=== PATIENT | female | born 1935 | race Caucasian/White ===

== ENCOUNTER 2018-03-09 12:42 | Emergency (ER) | payer MEDICARE ==
[2018-03-09] MEDS ORDERED: NS 0.9% 1000 ML* 1,000 ML IV ONE (12:43)
[2018-03-09] MEDS ORDERED: Iodixanol* (CONTRAST) 320 MG/ML 100 ML SDV IV ONE (13:32)
--- NOTE | 2018-03-09 13:47 | ED ---
Shortness of Breath - HPI Summary HPI Summary: This is scribe Steven Davidson documenting for attending Sarah Fontenot MD. A 82 y/o female MARISA presents to ED with chief complaint of CP,SOB worsening in the last few weeks referred by Dr. Tamayo who had drawn outpatient labs and noted elevated d dimer of 1500, troponin, normal at less than 0.06. In the ED room, the patient has a pulse of 95 BPM, O2 saturation of 94% and blood pressure of 193/78. As per triage, "SOB and per pt PCP Dr. Tamayo, elevated DDimer of 1470". Currently, the patient feels fine and has no CP or SOB at rest , however, has neck pain. Also, she has chest "pain" ("heaviness") on exertion but it has "been like that for years". In the ED pt states it has not become worse within the last [address] Tamayo who phoned ahead to advise of pt' s arrival by EMS, pt had an outpatient D-Dimer of approximately 1500 from labs drawn in the AM and a normal troponin. Pt has chronic reactive airway disease due to allergic rhinitis and takes singulair and a Q yariel inhaler, but has stopped the fluticasone nasal spray on her own. Pt also has hx HTN, on amlodipine and spironolactone. The patient stated that she suffers from chronic pain brought on by arthritis all over. Additionally she has chronic neck pain. She notes that she does not have SOB at rest, but if she walks around she does. She also has trouble with urinary incontinence. Pt denies any pain or swelling in legs, nausea, vomiting, wheezing, abdominal pain, worsening incontinence. Additionally denies any use of oxygen at home. She noted that previously when her MD called ED she did not have chest "pain", but rather chest "heaviness". Hot weather makes it hard for her to breathe. Pt wears support stockings. PMHx of left mastectomy for breast cancer. FHx of thrombosis/PE (her children) who have PCKD inherited from their father, not pt, heart disease (sister), and pancreatic cancer (mother). I, Dr. Sarah Fontenot, personally performed the services described in this documentation as scribed in my presence and it is both accurate and complete. - History of Current Complaint Chief Complaint: EDShortnessOfBreath Time Seen by Provider: 03/09/18 12:43 Hx Obtained From: Patient, Other: - Dr. Tamayo and records from his office Onset/Duration: Gradual Onset, Lasting Weeks Timing: Constant Current Severity: None Dyspnea At: Exertion Aggrevating Factors: Movement Alleviating Factors: Other - REST Associated Signs & Symptoms: Negative - Risk Factors Pulmonary Embolism: Malignancy - Allergy/Home Medications Allergies/Adverse Reactions: Allergies Allergy/AdvReac Type Severity Reaction Status Date / Time clindamycin Allergy GI Upset Verified 03/09/18 12:51 codeine Allergy Dizziness Verified 03/09/18 12:51 lisinopril Allergy Coughing Verified 03/09/18 12:51 meperidine [From Demerol] Allergy Altered Verified 03/09/18 12:51 Mental Status Penicillins Allergy Rash Verified 03/09/18 12:51 TETANUS Allergy REDDNESS Uncoded 03/09/18 12:51 FROM SHOULDER TO ELBOW Home Medications: Home Medications Beclomethasone 40 MCG MDI(NF) [Qvar 40 MCG MDI(NF)] 2 puff INH QAM 03/09/18 [ History Confirmed 03/09/18] Cholecalciferol CAP/TAB(NF) [Vitamin D3 CAP/TAB (NF)] 1,000 unit PO DAILY [History Confirmed 03/09/18] Clobetasol Propionate [Clobex] 0.05 % TOPICAL BID 03/09/18 [History Confirmed ] Levalbuterol HFA INHALER* [Xopenex Hfa Inhaler*] 2 puff INH QID PRN 03/09/18 [ History Confirmed 03/09/18] Montelukast Sodium TAB* [Singulair 10 MG TAB*] 10 mg PO BEDTIME 03/09/18 [ History Confirmed 03/09/18] Naproxen Sodium [Aleve] 220 mg PO BID PRN 03/09/18 [History Confirmed 03/09/18] Omeprazole Magnesium [Acid Clay Stain Mixer] 20 mg PO DAILY 03/09/18 [History Confirmed 03/09/18] Sodium Chloride 5% OPTH.TROY* [Chalo 128 Opth 5% OPTH.SOLl*] 1 drop BOTH EYES QID 03/09/18 [History Confirmed 03/09/18] Spironolactone TAB* [Aldactone TAB 25 MG*] 12.5 mg PO DAILY 03/09/18 [History Confirmed 03/09/18] Vit A/Vit C/Vit E/Zinc/Copper [Preservision Areds Softgel] 1 cap PO BID [History Confirmed 03/09/18] amLODIPine TAB* [Norvasc 5 mg TAB*] 10 mg PO DAILY 03/09/18 [History Confirmed 03/09/18] PMH/Surg Hx/FS Hx/Imm Hx Previously Healthy: No Endocrine/Hematology History: Denies: Hx Diabetes Cardiovascular History: Reports: Hx Hypertension - ON MEDICATION Denies: Hx Pacemaker/ICD Respiratory History: Reports: Hx Asthma - ALLERGIES, Hx Chronic Obstructive Pulmonary Disease (COPD), Hx Seasonal Allergies GI History: Reports: Hx Gastroesophageal Reflux Disease - ON MEDICATION FOR/ SLEEPS WITH HEAD OF BED ELEVATED, Hx Hiatal Hernia - ON MEDICATION History: Reports: Other Problems/Disorders - INCONTINENCE Denies: Hx Renal Disease Musculoskeletal History: Reports: Hx Arthritis - OSTEOARTHRITIS Sensory History: Reports: Hx Cataracts, Hx Contacts or Glasses Denies: Hx Hearing Aid Opthamlomology History: Reports: Hx Cataracts, Hx Contacts or Glasses Neurological History: Reports: Hx Headaches Psychiatric History: Denies: Hx Panic Disorder - Cancer History Cancer Type, Location and Year: breast x2; skin Hx Chemotherapy: Yes - Surgical History Surgery Procedure, Year, and Place: 2001 BILATERAL CATARACT SURGERY WITH IOL IMPLANT, [facility] [place];1992 LEFT BREAST LUMPECTOMY, [facility];2007 LEFT BREAST MASTECTOMY, [facility];2007 LOWER FRONT AND RIGHT JAW SURGERY, [facility] [place];1991 ORAL SURGERY, [facility];2012 (August) right total shoulder replacement 2012 (April) revision right shoulder; COLONOSCOPY;2008 LOWER RIGHT JAW SURGERY WITH IMPLANT, [facility] [place];2008 EXPLORATION LOWER RIGHT JAW, [place];2002 LEFT WRIST SURGERY, [facility] [place];RIGHT WRIST SURGERY;2010 ; MOHS SURGERY WITH SKIN GRAFT ON FACE, [place] (x8 SKIN CANCER SURGERYS); Hx Anesthesia Reactions: Yes - HARD TIME WAKING UP Infectious Disease History: No Infectious Disease History: Denies: Traveled Outside the [place] in Last 30 Days - Family History Known Family History: Positive: Cardiac Disease - sister, Other - pancreatic cancer, mother Negative: Respiratory Disease - Social History Alcohol Use: None Substance Use Type: Reports: None Smoking Status (MU): Never Smoked Tobacco Review of Systems Negative: Fever Positive: Other - hoarse voice Positive: Chest Pain - With Exertion. Positive: Shortness Of Breath - With Movement., Other - NEGATIVE: Wheezing. Negative: Abdominal Pain, Vomiting, Nausea, Other - NEGATIVE: incontinence Positive: incontinence Positive: Other - NEGATIVE: Pain in legs, calves; neck pain Skin: Negative Neurological: Negative Psychological: Normal All Other Systems Reviewed And Are Negative: Yes Physical Exam - Summary Physical Exam Summary: Appearance: Well-appearing, moderate pain distress, well-nourished Skin:Warm, color reflects adequate perfusion, dry, facial scars Head:Normal Head/Face inspection, atraumatic Eyes: Conjunctiva clear ENT:Normal inspection Neck:Supple, no nodes, no JVD, trachea midline, thyroid non palpable, no masses Respiratory: Lungs clear, normal breath sounds, no respiratory distress Cardio: RRR, No murmur, pulses normal, brisk capillary refill, left mastectomy. Abdomen: Soft, nontender Bowel sounds: Present Musculoskeletal: Strength Intact/ROM intact, no calf tenderness, no edema. Psychological: Normal Neuro: Alert, muscle tone normal, no focal deficit Triage Information Reviewed: Yes Vital Signs On Initial Exam: Initial Vitals Temp Pulse Resp BP Pulse Ox 98.8 F 88 24 174/96 95 03/09/18 12:46 03/09/18 12:46 03/09/18 12:46 03/09/18 12:46 03/09/18 12:46 Vital Signs Reviewed: Yes Diagnostics - Vital Signs Vital Signs Temp Pulse Resp BP Pulse Ox 03/09/18 13:00 101 19 193/78 97 03/09/18 12:50 95 20 94 03/09/18 12:49 95 03/09/18 12:46 98.8 F 88 24 174/96 95 - Laboratory Result Diagrams: 03/09/18 13:51 03/09/18 13:51 Lab Statement: Any lab studies that have been ordered have been reviewed, and results considered in the medical decision making process. - Radiology CXR Radiology Interpretation Completed By: Radiologist - NO ACTIVE CARDIOPULMONARY DISEASE IS NOTED. ED physician reviewed this radiology report. - CT CTA CHEST/THORAX CT Interpretation Completed By: Radiologist - 1. No CT evidence of acute pulmonary embolic disease. 2. Mild emphysematous change. 3. Large left thyroid mass likely related to a goiter. Suggest nonemergent follow-up thyroid sonography. 4. Large hiatal hernia. 5. Probable scant gallbladder gravel. 6. Left mastectomy with axillary dissection. ED physician reviewed this radiology report. - EKG 1303 Cardiac Rate: NL - 94 BPM EKG Rhythm: Sinus Rhythm ST Segment: Non-Specific Ectopy: None EKG Interpretation: nl SHARRON CT, nl QTc, left axis -4, no ectopy EKG Comparison: No Significant Change - Compared with 04/15/2013. Re-Evaluation - Re-Evaluation First Eval Re-Evaluation Time: 14:10 Change: Unchanged Comment: pt advised of CTA result. Denies CP, SOB. Will discuss with Dr. Tamayo. Course/Dx - Course Course Of Treatment: A 82 y/o female BIBA at direction of Dr. Tamayo, presents to ED with c/o CP and SOB and D-Dimer of 1500. A CTA Chest revealed 1. No CT evidence of acute pulmonary embolic disease. 2. Mild emphysematous change. 3. Large left thyroid mass likely related to a goiter. Suggest nonemergent follow- up thyroid sonography. 4. Large hiatal hernia. 5. Probable scant gallbladder gravel. 6. Left mastectomy with axillary dissection. A CXR revealed no active cardiopulmonary disease. An EKG revealed NSR of 94 BPM, nl SHARRON CT, nl QTc, left axis -4, no ectopy, no change from prior. In the ED course, the patient received IV fluids for hydration after receiving IV contrast for CTA. Pt denied CP/SOB in the ED. Troponin drawn in ED neg, d dimer in ED elevated at 327, but not as high as outpatient d dimer of 1500. Pt's medications were reviewed this visit. Patient care was discussed with PCP, Dr. Tamayo, who recommends patient to restart fluticasone nasal spray. Increase Gabapentin to 600 mg tid. He will follow up with left thyroid mass. Patient will be discharged with a diagnosis of allergic rhinitis with acute exacerbation of asthma without status asthmaticus, chronic pain, chest pain, elevated D-Dimer, thyroid mass of unclear etiology and osteoarthritis. Patient is to follow up with Dr. Tamayo in 2 days. Patient is agreeable with this plan. - Diagnoses Differential Diagnosis/HQI/PQRI: Positive: Asthma, COPD Exacerbation, PR, Pneumonia, Pulmonary Embolism Provider Diagnoses: Allergic rhinitis with acute exacerbation of asthma without status asthmaticus , Osteoarthritis, Chronic pain, Chest pain, Elevated d-dimer, Thyroid mass of unclear etiology - Physician Notifications Discussed Care of Patient With: Andi Tamayo Time Discussed With Above Provider: 14:16 Instructed by Provider To: Have Pt Call For Appt. - Patient will start on a fluticasone nasal spray. Increase Gabapentin to 600 mg tid. He will follow up with left thyroid mass. Discharge - Sign-Out/Discharge Documenting (check all that apply): Patient Departure - DISCHARGE - Discharge Plan Condition: Stable Disposition: HOME Prescriptions: Fluticasone NASAL SPRAY 50MCG* [Flonase NASAL SPRAY 50MCG*] 2 spray BOTH NARES DAILY #1 btl Gabapentin CAP(*) [Neurontin 300 CAP(*)] 600 mg PO TID #180 cap Patient Education Materials: Gabapentin (By mouth), Chest Pain (ED), Osteoarthritis (ED), Chronic Pain (ED), Allergic Rhinitis (ED) Referrals: Andi Tamayo MD [Primary Care Provider] - 2 Days Additional Instructions: We have talked to Dr. Tamayo, and we have given you a copy of your labs and CT report done in the ER. You have a thyroid mass, that Dr. Tamayo knows about and he will follow up on this as an outpatient. It may be a goiter. It may explain your hoarseness. Dr. Tamayo and Dr. Fontenot think that your chest discomfort and shortness of breath are related to your allergic rhinitis and your chronic severe arthritis pain. The labs testing for a heart attack and your EKG did not indicate an acute heart attack. The elevated d dimer was not a blood clot or pulmonary embolus. The d dimer is also a marker of inflammation, so it may be elevated because of your pain and reactive airway disease due to your allergic rhinitis. Dr. Tamayo wants to increase your gabapentin to 600mg three times a day for your severe arthritis pain. Dr. Fontenot has sent a prescription to [facility] in [place] for you for this. Dr. Tamayo also wants you to resume fluticasone nasal spray and she has sent a prescription for that to [facility] also. Return to ER if you have new or worsening symptoms. Have definite follow up with Dr. Darlow. Call his office to schedule this in the next 2-3 days. - Billing Disposition and Condition Condition: STABLE Disposition: Home
--- NOTE | 2018-03-09 13:54 | RAD ---
INDICATION: Chest pain. Short of breath. Evaluate for pulmonary embolus. COMPARISON: CT lumbar spine February 06, 2017 TECHNIQUE: Axial source images were obtained from the thoracic inlet to the hemidiaphragms following administration of 67 mL Vis[address] angiographic technique was utilized. Coronal and sagittal reconstructed images were acquired. CHEST FINDINGS: Neck/thyroid: There is a large left thyroid mass likely related to a goiter. Suggest nonemergent thyroid sonography. Chest wall: There are no acute abnormalities of the bony thorax or chest wall. There is left mastectomy with axillary dissection There is no supraclavicular, infraclavicular, or axillary lymphadenopathy. Lungs : There is mild coarsening the pulmonary interstitium. There are no focal consolidative changes. Cardiomediastinal structures: There is no CT evidence of acute pulmonary embolic disease. The heart is normal enlarged. There is no pericardial effusion. There is no evidence of aortic aneurysm or dissection. There is uncoiling of the thoracic aorta. There are aortic intimal calcifications. There is no mediastinal or hilar adenopathy. The esophagus appears normal. Pleura : There are no pleural-based masses or effusions. Other: There may be scant gallbladder gravel. There is mild fullness left renal collecting system. There is a large hiatal hernia. IMPRESSION: 1. No CT evidence of acute pulmonary embolic disease. 2. Mild emphysematous change. 3. Large left thyroid mass likely related to a goiter. Suggest nonemergent follow-up thyroid sonography. 4. Large hiatal hernia. 5. Probable scant gallbladder gravel. 6. Left mastectomy with axillary dissection
[2018-03-09 14:04] LABS: ABS Basophils 0.1 10^3/ul (0-0.2); ABS Eosinophils 0.1 10^3/ul (0-0.6); ABS Lymphocytes 1.1 10^3/ul (1.0-4.8); ABS Monocytes 0.6 10^3/ul (0-0.8); ABS Neutrophils 6.4 10^3/ul (1.5-7.7); ABS Nucleated RBC 0 10^3/ul; Eosinophil % 0.7 % (0-6); Hematocrit 48 % (35-47); Hemoglobin 16.5 g/dl (12.0-16.0); Mean Corpuscular HGB Conc 35 g/dl (31-36); Mean Corpuscular Hemoglobin 31 pg (27-31); Mean Corpuscular Volume 90 fL (80-97); Mean Platelet Volume 7.7 um3 (7.4-10.4); Nucleated Red Blood Cells % 0.1; Platelet Count 291 10^3/ul (150-450); Red Blood Count 5.28 10^6/ul (4.00-5.40); Red Cell Distribution Width 13 % (10.5-15); White Blood Count 8.2 10^3/ul (3.5-10.8)
[2018-03-09 14:09] LABS: Urine Appearance Clear; Urine Blood 1+ (Negative); Urine Color Yellow; Urine Ketones Negative (Negative); Urine Protein 1+(30 mg/dL) (Negative); Urine Red Blood Cell 2+(6-10/hpf) (Absent); Urine Specific Gravity 1.014 (1.010-1.030); Urine Urobilinogen Negative (Negative); Urine White Blood Cell 3+(>20/hpf) (Absent)
[2018-03-09 14:12] LABS: INR 0.88 (0.77-1.02)
[2018-03-09 14:27] LABS: EGFR Non-African American 74.8 (>60)
[2018-03-09 14:39] VITALS: BP 154/85
--- NOTE | 2018-03-09 15:02 | RAD ---
Indication: Chest pain. Single frontal view of the chest performed at 1435 hours was reviewed. Comparison is made with previous exam dated August 05, 2012. No mediastinal shift is noted. Heart is of normal size and configuration. Lung villalba appear clear. IMPRESSION: NO ACTIVE CARDIOPULMONARY DISEASE IS NOTED.
== END 2018-03-09 15:03 | disposition home or self-care (01) ==
LOC: ED 12:42
DX: J45.901 Unspecified asthma with (acute) exacerbation (principal); J30.9 Allergic rhinitis, unspecified; R07.9 Chest pain, unspecified; R79.1 Abnormal coagulation profile; E07.9 Disorder of thyroid, unspecified; K44.9 Diaphragmatic hernia without obstruction or gangrene; M19.90 Unspecified osteoarthritis, unspecified site; I10 Essential (primary) hypertension; G89.29 Other chronic pain; M54.2 Cervicalgia; K21.9 Gastro-esophageal reflux disease without esophagitis; R32 Unspecified urinary incontinence; Z79.899 Other long term (current) drug therapy; Z83.2 Family history of diseases of the blood and blood-forming organs and certain disorders involving the immune mechanism; Z88.3 Allergy status to other anti-infective agents; Z88.5 Allergy status to narcotic agent; Z88.7 Allergy status to serum and vaccine; Z88.8 Allergy status to other drugs, medicaments and biological substances; Z90.12 Acquired absence of left breast and nipple
CPT/HCPCS: 36415; 71045; 71275; 80053; 81003; 81015; 82550; 82553; 83605; 83735; 83880; 84484; 85025; 85379; 85610; 85730; 87086; 93005; 96360; 99283; Q9967

== ENCOUNTER 2018-06-18 06:06 | Inpatient (IN) | payer MEDICARE ==
--- OUTSIDE RECORDS SUMMARY | 2018-06-18 06:10 | XMS REPORT ---
:1935 External Reference #:[id number] Author Organization [employer] Address [address] [facility] [address] [place] [address] [place] [address] Phone [phone] Care Team Providers Name Role Phone Andi Tamayo MD Primary Care Physician Unavailable Payers Type Date Identification Numbers Payment Provider Subscriber Medicare Primary Effective: Policy Number: [id number] Medicare Graciela Styles 2000 [id number] PayID: [id number] [address] [place] [address] [facility] Part B Effective: Policy Number: BS Facets Graciela Styles 2011 [id number] Expires: 2017 PayID: [id number] [address] [address] [place] [address] Medigap Part B Policy Number: [id number] [facility] Graciela Styles PayID: [id number] [address] [place] [address] Problems Description No Information Family History Date Family Member(s) Problem(s) Comments General Heart Disease General Diabetes General Cancer Father Heart Disease Father Stroke Mother Pancreatic Cancer Social History Type Date Description Comments Marital Status Occupation Retired ETOH Use Denies alcohol use Smoking Patient has never smoked Daily Caffeine Consumes on average 2 cups of regular coffee per day Exercise Type/Frequency Does not exercise Allergies, Adverse Reactions, Alerts Date Description Reaction Status Severity Comments 09/14/2013 Penicillins active rash 09/14/2013 Codeine active nausea 09/14/2013 Clindamycin active gi distress 09/14/2013 Lisinopril active cough 09/14/2013 Demerol active nausea 09/14/2013 Tetanus Toxoids active Medications Medication Date Status Form Strength Qnty SIG Indications Ordering Provider Amlodipine Besylate Active 10 mg Unknown / daily Singulair Active 10mg qd Unknown Flovent HFA Active 110mg 2 puff bid Unknown prn Vitamin D Active Capsules 1000Unit po qd Unknown / Fluticasone Active 2 sprays Unknown Propionate each nostril daily as needed Qvar Redihaler Active Aerosol 40mcg/Act 2 puff Unknown twice a day Clobetasol Active Cream 0.05% apply a Unknown Propionate thin layer to affected areas twice daily. Preservision Areds Active Capsules 1 tab by Unknown /0000 mouth twice a day Chalo 128 Active Solution 2% four times Unknown / a day as directed Aleve Active Tablets 220mg 1-2 Unknown / tablets every 12 hours as needed pain Gabapentin Active Capsules 100mg 1-2 tabs Unknown / three times a day Spironolactone Active Tablets 25mg 1/2 by Unknown /0000 mouth every day Esomeprazole Active Capsules 20mg [address] every day Oxycodone HCL 12/21 Hx Tablets 5mg 60tab 1-2 po tid s prn michael Velasquez M.D. [place] 05/18 Hx Tablets 5-325mg 40tab 1-2 po q4h Soraya s prn Katerin lucero M.D. 12/21 Hydrochlorothiazide Hx Unknown / Arthrotec Hx 50mg bid Prevacid Hx 30mg qd Unknown Tamoxifen Citrate Hx 20mg qd Centrum Silver Hx Unknown / Calcium Citrate Hx Unknown / Tylenol Hx prn Xopenex HFA Hx Aerosol 45mcg/Act 2 puffs Unknown /0000 inhaled every 4-6h as needed for shortness of breath. Medications Administered in Office Medication Date Status Form Strength Qnty SIG Indications Ordering Provider Depomedrol Administered Injection Anatoly 80MG 012 George Velasquez Depomedrol Administered Injection k Roby, 40MG 012 George Vital Signs Date Vital Result Comment 06/02/2018 Height 57.5 inches 4'9.50" Weight 136.00 lb Heart Rate 72 /min BP Systolic Sitting 138 mmHg BP Diastolic Sitting 78 mmHg Respiratory Rate 18 /min Body Temperature 98.1 F BMI (Body Mass Index) 28.9 kg/m2 09/14/2013 Height 58 inches 4'10" Weight 140.00 lb Heart Rate 92 /min BMI (Body Mass Index) 29.3 kg/m2 Results Test Date Test Result H/L Range Note Laboratory test 05/10/2018 Cytology Non-Director Of Acquisitions SEE RESULT BELOW 1 finding CBC Auto Diff 12/18/2017 White Blood Count 8.5 10^3/uL 3.5-10.8 Red Blood Count 5.19 10^6/uL 4.0-5.4 Hemoglobin 16.3 g/dL High 12.0-16.0 Hematocrit 48 % High 35-47 Mean Corpuscular Volume 92 fL 80-97 Mean Corpuscular Hemoglobin 31 pg 27-31 Mean Corpuscular HGB Conc 34 g/dL 31-36 Red Cell Distribution Width 13 % 10.5-15 Platelet Count 284 10^3/uL 150-450 Mean Platelet Volume 7.4 um3 7.4-10.4 Abs Neutrophils 6.4 10^3/uL 1.5-7.7 Abs Lymphocytes 1.3 10^3/uL 1.0-4.8 Abs Monocytes 0.6 10^3/uL 0-0.8 Abs Eosinophils 0.1 10^3/uL 0-0.6 Abs Basophils 0.1 10^3/uL 0-0.2 Abs Nucleated RBC 0 10^3/uL Granulocyte % 74.8 % 38-83 Lymphocyte % 15.7 % Low 25-47 Monocyte % 7.2 % High 0-7 Eosinophil % 1.3 % 0-6 Basophil % 1.0 % 0-2 Nucleated Red Blood Cells % 0 Basic Metabolic Panel 12/18/2017 Sodium 137 mmol/L Low 139-145 Potassium 4.4 mmol/L 3.5-5.0 Chloride 102 mmol/L 101-111 Co2 Carbon Dioxide 26 mmol/L 22-32 Anion Gap 9 mmol/L 2-11 Glucose 101 mg/dL High 70-100 Blood Urea Nitrogen 19 mg/dL 6-24 Creatinine 0.70 mg/dL 0.51-0.95 BUN/Creatinine Ratio 27.1 High 8-20 Calcium 10.5 mg/dL High 8.6-10.3 Egfr Non- 79.7 >60 Egfr 102.5 >60 2 Basic Metabolic Panel 06/24/2017 Sodium 134 mmol/L 133-145 Potassium 4.4 mmol/L 3.5-5.0 Chloride 102 mmol/L 101-111 Co2 Carbon Dioxide 26 mmol/L 22-32 Anion Gap 6 mmol/L 2-11 Glucose 125 mg/dL High 70-100 Blood Urea Nitrogen 20 mg/dL 6-24 Creatinine 0.69 mg/dL 0.51-0.95 BUN/Creatinine Ratio 29.0 High 8-20 Calcium 10.8 mg/dL High 8.6-10.3 Egfr Non- 81.1 >60 Egfr 104.2 >60 3 CBC Auto Diff 06/24/2017 White Blood Count 6.8 10^3/uL 3.5-10.8 Red Blood Count 5.20 10^6/uL 4.0-5.4 Hemoglobin 15.9 g/dL 12.0-16.0 Hematocrit 48 % High 35-47 Mean Corpuscular Volume 92 fL 80-97 Mean Corpuscular Hemoglobin 31 pg 27-31 Mean Corpuscular HGB Conc 34 g/dL 31-36 Red Cell Distribution Width 13 % 10.5-15 Platelet Count 298 10^3/uL 150-450 Mean Platelet Volume 8 um3 7.4-10.4 Abs Neutrophils 5.4 10^3/uL 1.5-7.7 Abs Lymphocytes 0.8 10^3/uL Low 1.0-4.8 Abs Monocytes 0.5 10^3/uL 0-0.8 Abs Eosinophils 0.1 10^3/uL 0-0.6 Abs Basophils 0.1 10^3/uL 0-0.2 Abs Nucleated RBC 0 10^3/uL Granulocyte % 79.0 % 38-83 Lymphocyte % 12.4 % Low 25-47 Monocyte % 6.8 % 1-9 Eosinophil % 0.8 % 0-6 Basophil % 1.0 % 0-2 Nucleated Red Blood Cells % 0 Type & Screen 04/14/2013 Patient Blood Type O Positive Antibody Screen NEGATIVE Laboratory test finding 04/14/2013 Vitamin D 1,25-Dihydroxy 59 pg/mL 18- 78 4 Vitamin D, 25 Hydroxy 04/14/2013 25-Hydroxy Vitamin D2 <4.0 ng/mL 25-Hydroxy Vitamin D3 72 ng/mL 25-Hydroxy Vitamin D Total 72 ng/mL 5 Laboratory test finding 04/14/2013 CA 27-29 9.35 U/mL 3.5-38.6 6 Comp Metabolic Panel 04/14/2013 Sodium 137 mmol/L 133-145 Potassium 3.5 mmol/L 3.5-5.0 Chloride 100 mmol/L Low 101-111 Co2 Carbon Dioxide 26.0 mmol/L 22-32 Anion Gap 11.0 mmol/L 2-11 Glucose 105 mg/dL High 70-100 Blood Urea Nitrogen 23 mg/dL 6-24 Creatinine 0.70 mg/dL 0.50-1.40 BUN/Creatinine Ratio 32.9 High 8-20 Calcium 10.3 mg/dL High 8.1-9.9 Total Protein 6.3 g/dL 6.2-8.1 Albumin 3.8 g/dL 3.2-5.2 Globulin 2.5 g/dL 2-4 Albumin/Globulin Ratio 1.5 1-3 Total Bilirubin 0.5 mg/dL 0.4-1.5 Alkaline Phosphatase 93 U/L 30-110 Alt 29 U/L 14-54 Ast 35 U/L 12-42 Egfr Non- 80.7 >60 Egfr 103.8 >60 7 CBC Auto Diff 04/14/2013 White Blood Count 8.4 10^3/uL 4.8-10.8 Red Blood Count 4.79 10^6/uL 4.0-5.4 Hemoglobin 14.3 g/dL 12.0-16.0 Hematocrit 44 % 35-47 Mean Corpuscular Volume 92 fL 80-97 Mean Corpuscular Hemoglobin 30 pg 27-31 Mean Corpuscular HGB Conc 32 g/dL 31-36 Red Cell Distribution Width 14 % 10.5-15 Platelet Count 320 10^3/uL 150-450 Mean Platelet Volume 8 um3 7.4-10.4 Abs Neutrophils 5.9 10^3/uL 1.5-7.7 Abs Lymphocytes 1.6 10^3/uL 1.0-4.8 Abs Monocytes 0.7 10^3/uL 0-0.8 Abs Eosinophils 0.1 10^3/uL 0-0.6 Abs Basophils 0.1 10^3/uL 0-0.2 Abs Nucleated RBC 0.01 10^3/uL Granulocyte % 70.1 % 38-83 Lymphocyte % 19.5 % Low 25-47 Monocyte % 8.2 % 1-9 Eosinophil % 1.3 % 0-6 Basophil % 0.9 % 0-2 Nucleated Red Blood Cells % 0.1 Urine Culture And Sensitivities 04/14/2013 Urine Culture (SEE NOTE) 8 Urine Microscopic 04/14/2013 Urine WBC 1+ (<10 /hpf) None Seen Urine RBC 1+ (<3 /hpf) None Seen Urine Epithelial Cells 1+ Squamous /hpf None Seen Bacteria Urine None Seen None Seen Urinalysis 04/14/2013 Urine Color Yellow Urine Appearance Clear Urine Specific Sula 1.027 1.010-1.030 Urine Esterase 1+ Negative Urine Nitrate Negative Negative Urine Urobilinogen Negative E.U./dL Negative Urine Protein Negative mg/dL Negative Urine pH 5.5 5-9 Urine Blood Negative Negative Urine Ketones Negative mg/dL Negative Urine Bilirubin 1+ Negative Urine Glucose Negative mg/dL Negative Laboratory test finding 03/24/2013 C Reactive Protein 0.5 mg/dL Less than 0.5 CBC Auto Diff 03/24/2013 White Blood Count 10.3 10^3/uL 4.8-10.8 Red Blood Count 4.82 10^6/uL 4.0-5.4 Hemoglobin 14.4 g/dL 12.0-16.0 Hematocrit 44 % 35-47 Mean Corpuscular Volume 91 fL 80-97 Mean Corpuscular Hemoglobin 30 pg 27-31 Mean Corpuscular HGB Conc 33 g/dL 31-36 Red Cell Distribution Width 14 % 10.5-15 Platelet Count 347 10^3/uL 150-450 Mean Platelet Volume 8 um3 7.4-10.4 Abs Neutrophils 7.8 10^3/uL High 1.5-7.7 Abs Lymphocytes 1.5 10^3/uL 1.0-4.8 Abs Monocytes 0.8 10^3/uL 0-0.8 Abs Eosinophils 0.1 10^3/uL 0-0.6 Abs Basophils 0.1 10^3/uL 0-0.2 Abs Nucleated RBC 0 10^3/uL Granulocyte % 75.5 % 38-83 Lymphocyte % 15.0 % Low 25-47 Monocyte % 8.0 % 1-9 Eosinophil % 0.6 % 0-6 Basophil % 0.9 % 0-2 Nucleated Red Blood Cells % 0 Laboratory test finding 03/24/2013 Erythrocyte Sed Rate 34 mm/Hr 0-40 1 SEE RESULT BELOW Name: GRACIELA STYLES : [address]: Andi Tamayo MD Acct: [id number] Unit: [id number] AGE: 82 Location: Re05/10/18 SEX: F Status: REG REF SPEC: [id number] DORIS: 05/10/18-[address] [facility] [address]: Andi Tamayo MD REQ: [id number] RECD: 05/10/18-1399 STATUS: GISELLE CHAND DR: Brandon Almonte MD _ ORDERED: FNA-IMG GUID BX/4, CYTO ADEQ-1ST P/4 FINAL DIAGNOSIS 1) Thyroid, right mid, Ultrasound guided, fine needle aspiration: -- Benign thyroid nodule-involutional type (Stanford class II). 2) Thyroid, right lower, Ultrasound guided, fine needle aspiration: -- Benign thyroid nodule-colloid/hyperplastic (Stanford class II). 3) Thyroid, isthmus, Ultrasound guided, fine needle aspiration: -- Follicular neoplasm (Stanford class IV). 4) Thyroid, left, Ultrasound guided, fine needle aspiration: -- Malignant- papillary thyroid carcinoma (Stanford class ). COMMENT: Dr. Vargas reviewed this case in intradepartmental consultation and agrees with the diagnosis. #1. THYROID RIGHT - US GUIDED RIGHT MID THYROID FINE NEEDLE ASPIRATION, #2. THYROID RIGHT - US GUIDED RIGHT LOWER THYROID FINE NEEDLE ASPIRATION, CONTINUED ON NEXT PAGE DEPARTMENT OF PATHOLOGY, [address] [place] [address] Davis Vargas M.D. Director [facility] # [id number] RUN DATE: 05/11/18 [facility] LAB LIVE PAGE 2 Patient: GRACIELA STYLES Saundra [id number] (Continued) SPECIMEN(S) RECEIVED (Continued) #3. THYROID ISTHMUS - US GUIDED ISTHMUS FINE NEEDLE ASPIRATION, #4. THYROID LEFT - US GUIDED LEFT THYROID FINE NEEDLE ASPIRATION CLINICAL HISTORY #1) 1.6 x 1.3 x 1.3 cm mid thyroid n IMMEDIATE INTERPRETATION 1) Pass 1-adequate 2) Pass 1-adequate 3) Pass 1-adequate 4) Pass 1-adequate GROSS DESCRIPTION 1) 4 - alcohol fixed slide(s) 1- passes 2) 3 - alcohol fixed slide(s) 1 - passes 3) 5 - alcohol fixed slide(s) 1 - passes 4) 3 - alcohol fixed slide(s) 1 - passes Signed by and Reported on: Renata Hernandez MD 05/11/18 1205 END OF REPORT DEPARTMENT OF PATHOLOGY, [address] [place] [address] Davis Vargas M.D. Director [facility] # [id number] 2 Because ethnic data is not always readily available, this report includes an eGFR for both -Americans and non- Americans. The National Kidney Disease Education Program (NKDEP) does not endorse the use of the MDRD equation for patients that are not between the ages of 18 and 70, are , have extremes of body size, muscle mass, or nutritional status, or are non- or non-. According to the National Kidney Foundation, irrespective of diagnosis, the stage of the disease is based on the level of kidney function: Stage Description GFR(mL/min/1.73 m(2)) 1 Kidney damage with normal or decreased GFR 90 2 Kidney damage with mild decrease in GFR 60-89 3 Moderate decrease in GFR 30-59 4 Severe decrease in GFR 15-29 5 Kidney failure <15 (or dialysis) 3 Because ethnic data is not always readily available, this report includes an eGFR for both -Americans and non- Americans. The National Kidney Disease Education Program (NKDEP) does not endorse the use of the MDRD equation for patients that are not between the ages of 18 and 70, are , have extremes of body size, muscle mass, or nutritional status, or are non- or non-. According to the National Kidney Foundation, irrespective of diagnosis, the stage of the disease is based on the level of kidney function: Stage Description GFR(mL/min/1.73 m(2)) 1 Kidney damage with normal or decreased GFR 90 2 Kidney damage with mild decrease in GFR 60-89 3 Moderate decrease in GFR 30-59 4 Severe decrease in GFR 15-29 5 Kidney failure <15 (or dialysis) 4 Test Performed by: [place] [address] Chair Pad Maker: Alonso Shelton III, M.D. 5 Interpretation: 51-80 (increased risk of hypercalciuria) -- REFERENCE VALUE -- 25-HYDROXY D TOTAL (D2+D3) Optimum levels in the healthy population are 20-50, patients with bone disease may benefit from higher levels within this range. Test Performed by: [place] [address] Chair Pad Maker: Alonso Shelton III, M.D. 6 Assay by Chemiluminescence microparticle immunoassay on the [employer]. Values obtained with different methods or kits cannot be used interchangeably for patient monitoring. Results cannot be interpreted as absolute evidence of the presence or absence of malignancy. The test is not interpretable in . 7 Because ethnic data is not always readily available, this report includes an eGFR for both -Americans and non- Americans. The National Kidney Disease Education Program (NKDEP) does not endorse the use of the MDRD equation for patients that are not between the ages of 18 and 70, are , have extremes of body size, muscle mass, or nutritional status, or are non- or non-. According to the National Kidney Foundation, irrespective of diagnosis, the stage of the disease is based on the level of kidney function: Stage Description GFR(mL/min/1.73 m(2)) 1 Kidney damage with normal or decreased GFR 90 2 Kidney damage with mild decrease in GFR 60-89 3 Moderate decrease in GFR 30-59 4 Severe decrease in GFR 15-29 5 Kidney failure <15 (or dialysis) 8 RUN DATE: 04/16/13 [facility] LAB LIVE PAGE 1 RUN TIME: [address] [place] [address] Specimen Inquiry Name: GRACIELA STYLES : [address]: Anatoly Velasquez MD Acct: [id number] Unit: [id number] AGE: 77 Location: PAT Re04/14/13 SEX: F Status: REG REF SPEC: [id number] DORIS: 04/14/13-[address] [facility] [address]: Anatoly Velasquez MD REQ: [id number] RECD: 04/14/13 EXPLICIT FAX#: [phone] STATUS: COMP OTHR DR: Andi WALLACE MD,MOISÉS Weiner _ SOURCE: URINE SPDESC: ORDERED: Urine Culture Procedure Result Verified Site Urine Culture Final 04/16/13- 1007 ML Organism 1 NORMAL YVES Cushman Count 1-10,000 (Few) CFU/ML END OF REPORT * ML=Testing performed at Main Lab DEPARTMENT OF PATHOLOGY, [address] [place] [address] Davis Vargas M.D. Director [facility] Permit #[id number] Procedures Date CPT Code Description Status 07/22/2017 82127 Repair Immediate Wound < 2.6CM Completed Face/Ear/Eyelid/Nose/Lip/Muc Mem 07/22/2017 85151 Excise Malig Lesion 1.1-2CM Face/Ear/Eyelid/Nose/Lip Completed 07/03/2017 41894 Each Additional Biopsy Completed 07/03/2017 17950 Biopsy Skin Lesion Single Completed 05/02/2013 25060 Rad Shoulder Comp, Min. 2 Views Completed 05/02/2013 09402 Rad Shoulder Comp, Min. 2 Views Completed 04/21/2013 09051 RVS TTL Shoulder Arthoplasty Incld Allograft Completed 04/21/2013 51043 RVS TTL Shoulder Arthoplasty Incld Allograft Completed 04/14/2013 75434 EKG, Interpretation Only Completed 11/09/2012 52107 Rad Shoulder Comp, Min. 2 Views Completed 08/27/2012 51260 Rad Shoulder Comp, Min. 2 Views Completed 08/11/2012 83923 Tenodesis Biceps Long Tendon Completed 08/11/2012 96635 Tenodesis Biceps Long Tendon Completed 08/11/2012 65434 Arthroplasty,Total Shoulder Replacement (TSR) Completed 08/11/2012 20252 Arthroplasty,Total Shoulder Replacement (TSR) Completed 06/28/2012 17229 Rad Exam; Hand Limited Completed 06/08/2012 65003 Rad Exam; Hand Limited Completed 05/27/2012 95492 Capsulodesis Metacarpophalangeal Joint, Single Digit Completed 05/27/2012 32157 Tendon Transfer CMC/Hand W/O Free Graft Completed 05/27/2012 88325 Arthroplasty Interposition Intercarpal Or Completed Carpometacarpal JTS 05/27/2012 13475 Arthroplasty Interposition Intercarpal Or Completed Carpometacarpal JTS 03/25/2012 35250 Rad Shoulder Comp, Min. 2 Views Completed 03/25/2012 92890 Inject/Drain Joint/Bursa Major W/O US Completed 02/10/2012 05798 Rad Exam; Wrist, Comp, Min 3 Views Completed 01/02/2012 35568 Rad Exam; Hand Comp Completed 01/02/2012 81117 Rad Exam; Wrist, Comp, Min 3 Views Completed 01/02/2012 65382 Inject/Drain Joint/Bursa Major W/O US Completed 01/02/2012 57949 Inject/Drain Joint/Bursa Small W/O US Completed Encounters Type Date Location Provider CPT E/M Dx Office Visit 02/05/2017 11:00a [facility] [place] [address] I83.11 I83.12 L28.1 D48.5 L82.1 Office Visit 09/14/2013 10:30a [facility] Soraya Penn 33926 715.94 Of Ebony Vazquez Office Visit 03/24/2013 9:30a [facility] Anatoly Velasquez M.D. 27748 715.91 Of Dorian.Jed 996.78 Office Visit 02/01/2013 9:00a [facility] Soraya Penn 63811 354.0 Of Ebony Vazquez 715.94 Office Visit 12/21/2012 9:45a [facility] Of Anatoly Velasquez M.D. 16055 715.91 C.M.AAra Office Visit 04/22/2012 9:45a [facility] Of Anatoly Velasquez M.D. 83204 715.11 C.M.AAra Office Visit 03/25/2012 11:00a [facility] Of Anatoly Velasquez M.D. 07965 715.11 C.M.AAra Office Visit 03/23/2012 9:45a [facility] Of Soraya 30096 715.94 Ebony Penn M.D. 716.94 Office Visit 02/10/2012 8:30a [facility] Soraya PuentesMariselRon, 06742 715.94 Of Ebony Vazquez 716.94 Office Visit 01/02/2012 11:30a [facility] [place] M.D. 67728 715.94 Ebony 716.94 Plan of Care 06/02/2018 - Radha Saez, [id number] Malignant neoplasm of thyroid glandNew Orders: EKGFollow up:Please schedule patient for post operative visit.Recommendations: Please see Dr. Tamayo for preoperative risk stratification. Order placed for neck ultrasound to evaluate for possible lateral neck disease. Schedule surgery for total thyroidectomy.
--- OUTSIDE RECORDS SUMMARY | 2018-06-18 06:10 | XMS REPORT | Continuity of Care Document ---
:1935 External Reference #:[id number] Author Name Olivia Mccord Care Team Providers Name Role Phone Andi Tamayo MD Care Team Information Manager Drug Safety Unavailable Andi Tamayo MD Primary Care Physician Unavailable Payers Type Date Identification Numbers Payment Provider Subscriber Policy Number: [id number] Medicare [place] Graciela Olmstead PayID: [id number] [address] [place] [address] Policy Number: [id number] [facility] Health Care Options Graciela Olmstead PayID: [id number] [address] [place] [address] Advance Directives Description No Information Available Problems Date Description Provider Status Onset: 12/08/2013 Essential hypertension Active Onset: 09/15/2016 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 Active Onset: 12/08/2013 Alternating esotropia Magnus Hare O.D. Active Onset: 12/08/2013 Chronic allergic conjunctivitis Magnus Hare O.D. Active Onset: 12/08/2013 Vitreous degeneration Magnus Hare O.D. Active Onset: 12/08/2013 After-cataract with vision obscured Magnus Hare O.D. Active Onset: 12/08/2013 Lens Replaced By Other Means Magnus Hare O.D. 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 Family History Date Family Member(s) Problem(s) Comments Father due to Heart Attack () Father Glasses Father Arthritis Father Heart Disease Mother due to Pancreatic Cancer () Mother Glasses Mother Cancer Mother Arthritis Mother Diabetes borderline Social History Type Date Description Comments Sex Unknown ETOH Use Never used alcohol Tobacco Use Start: Unknown Patient has never smoked Smoking Status Reviewed: 06/03/18 Patient has never smoked Allergies, Adverse Reactions, Alerts Date Description Reaction Status Severity Comments 12/08/2013 Seasonal Active 12/08/2013 Pollen Active 12/08/2013 Mold Active 12/08/2013 Clindamycin Active gi upset 12/08/2013 Lisinopril Active continual cough 12/08/2013 Meperidine Active excessive drowsiness 12/08/2013 Penicillin Active rash 12/08/2013 Codeine Active dizzy, nausea 12/08/2013 Tetanus Active reddness from shoulder to elbow Medications Medication Date Status Form Strength Qnty SIG Indications Ordering Provider Ocuvite 09/15/ Active Tablets Loco Malloy M.D. Chalo 128 09/15/ Active Solution 2% 15ml 1 drop Loco 2016 both chito Malloy M.D. twice a day Tramadol HCL ER / Active Tablets ER 100mg Unknown 0000 24HR Montelukast / Active Tablets 10mg Unknown Sodium 0000 Prevacid / Active Capsules DR 30mg Unknown 0000 Clarithromycin / Active Tablets 500mg Unknown 0000 Diclofenac / Active Tablets DR 50-0.2mg Unknown Sodium/Misoprost 0000 ol Duloxetine HCL / Active Caps DR Part 30mg Unknown 0000 Oxycodone HCL / Active Tablets 5mg Unknown 0000 Xopenex HFA / Active Aerosol 45mcg/Act Unknown 0000 Amitriptyline / Active Tablets 10mg Unknown HCL 0000 Fluzone / Active Suspension PF 13-14 Unknown High-Dose PF 0000 [id number] Flovent HFA 00/00/ Active Aerosol 110mcg/Act Unknown 0000 Systane / Active Solution 0.4-0.3% 2ml 1 drops Unknown 0000 both eyes twice a day Ultram ER 00/00/ Active Tablets ER Unknown 0000 24HR Montelukast 0000/ Active Tablets 10mg Darlow Sodium 0000 MD, Andi Amlodipine / Active Tablets 10mg Darlow Besylate 0000 MD, Andi Neurontin / Active Capsules 100mg tid Unknown 0000 Xiidra 05/08/ Hx Solution 5% 60unit 1gtt H50.05 Magnus 2016 - s both Boby, 10/30/ eyes OD 2017 twice a day Chalo 128 01/02/ Hx Solution 5% 15ml 1 drop H18.59 Magnus 2014 - both Payam, 08/06/ eyes O.D. 2015 three times a day both eyes Immunizations Description No Information Available Vital Signs Date Vital Result Comment 12/01/2017 2:50pm Intraocular Pressure Right Eye 17 mmHg Intraocular Pressure Left Eye 17 mmHg 09/15/2016 1:23pm Intraocular Pressure Right Eye 17 mmHg Intraocular Pressure Left Eye 17 mmHg 08/06/2015 10:34am Intraocular Pressure Right Eye 14 mmHg Intraocular Pressure Left Eye 14 mmHg 01/02/2015 10:52am Intraocular Pressure Right Eye 15 mmHg Intraocular Pressure Left Eye 15 mmHg 07/03/2014 12:14pm Intraocular Pressure Right Eye 17 mmHg Intraocular Pressure Left Eye 17 mmHg Results Description No Information Available Procedures Date Code Description Status 12/01/2017 64909 Fundus Photography W/Interpretation & Report Completed 12/01/2017 54035 Eye Exam Est Intermediate Completed 10/30/2017 38060 Refraction Completed 10/30/2017 45521 Eye Exam Est Intermediate Completed 05/08/2017 57543 Oct Retina Completed 05/08/2017 53378 Eye Exam Est Intermediate Completed 11/10/2016 54034 Excision Lesion Eyelid Completed 10/27/2016 95996 Fundus Photography W/Interpretation & Report Completed 10/27/2016 75498 Ophthalmoscopy Subsequent Completed 10/27/2016 69307 Eye Exam Est Intermediate Completed 09/15/2016 86941 External Photography W/Interpretation & Report Completed 09/15/2016 11320 Eye Exam Est Intermediate Completed 03/13/2016 50139 Eye Exam Est Intermediate Completed 03/13/2016 81078 Oct Retina Completed 08/06/2015 02320 Fundus Photography W/Interpretation & Report Completed 08/06/2015 03701 Ophthalmoscopy Subsequent Completed 08/06/2015 54740 Eye Exam Est Intermediate Completed 02/01/2015 20617 Oct Retina Completed 02/01/2015 67355 Eye Exam Est Intermediate Completed 01/02/2015 60157 Fundus Photography W/Interpretation & Report Completed 01/02/2015 51712 Eye Exam Est Comprehensive Completed 06/23/2014 71478 Remove Secondary Cataract, Laser (Yag) Completed 06/12/2014 66595 Eye Exam Est Intermediate Completed 12/08/2013 31316 Refraction Completed 12/08/2013 80461 Eye Exam New Comprehensive Completed Encounters Description No Information Available Plan of Treatment Future Appointment(s):12/01/2018 10:30 am - Magnus Landis, OD at [facility]/2017 - Magnus Landis, [id number] Nonexudative age-related macular degeneration, bilateral, inFollow up:6 mos full
--- OUTSIDE RECORDS SUMMARY | 2018-06-18 06:10 | XMS REPORT ---
:1935 External Reference #:[id number] Author Organization [facility] Address [address] [place] [address] [place] [address] Phone [phone] Care Team Providers Name Role Phone Andi Tamayo MD Primary Care Physician Unavailable Payers Type Date Identification Numbers Payment Provider Subscriber Medicare Primary Effective: Policy Number: Medicare Graciela Styles 1998 [id number] PayID: [id number] [address] [place] [address] [facility] Effective: Policy Number: BS Facets Graciela Styles 2011 [id number] Expires: 2017 PayID: [id number] [address] [address] [place] [address] Medigap Part B Policy Number: [id number] [facility] Graciela Styles PayID: [id number] [address] [place] [address] Problems Description No Information Family History Date Family Member(s) Problem(s) Comments General Heart Disease General Diabetes General Cancer General Polycystic Kidney Disease all four of her children Father Heart Disease Father Stroke Mother Pancreatic Cancer Social History Type Date Description Comments Marital Status Lives With Alone Occupation Retired ETOH Use Denies alcohol use Smoking Patient has never smoked Recreational Drug Use Denies Drug Use Daily Caffeine Consumes on average 2 cups [...] Provider Amlodipine Besylate Active 10 mg Unknown /0000 daily Singulair Active 10mg qd Unknown / Flovent HFA Active 110mg 2 puff bid Unknown prn Vitamin D Active Capsules 1000Unit po qd Unknown Fluticasone Active 2 sprays Unknown Propionate 0000 each nostril daily as needed Qvar Redihaler Active Aerosol 40mcg/Act 2 puff Unknown twice a day Clobetasol Active Cream 0.05% apply a Unknown Propionate thin layer to affected areas twice daily. Preservision Areds Active Capsules 1 tab by Unknown /0000 mouth twice a day Chalo 128 Active Solution 2% four times Unknown / a day as directed Aleve Active Tablets 220mg 1-2 Unknown /0000 tablets every 12 hours as needed pain Gabapentin Active Capsules 100mg 1-2 tabs Unknown /0000 three times a day Spironolactone Active Tablets 25mg 1/2 by Unknown /0000 mouth every day Esomeprazole Active Capsules 20mg [address] every day Ventolin HFA Active Aerosol 108(90Bas 2 puffs by Unknown /0000 e) mouth four mcg/Act times a day as needed Oxycodone HCL 12/21 Hx Tablets 5mg 60tab 1-2 po tid Anatoly s prn michael Velasquez M.D. [place] 05/18 Hx Tablets 5-325mg 40tab 1-2 po q4h Soraya s prn Katerin lucero M.D. 12/21 Hydrochlorothiazide Hx Unknown / Arthrotec Hx 50mg bid Prevacid Hx 30mg qd Unknown / Tamoxifen Citrate Hx 20mg qd Unknown / Centrum Silver Hx Unknown Calcium Citrate Hx Unknown / Tylenol Hx prn Unknown /0000 Xopenex HFA 00 Hx Aerosol 45mcg/Act 2 puffs Unknown /0000 inhaled every 4-6h as needed for shortness of breath. Xopenex HFA 00 Hx Aerosol 45mcg/Act 2 puffs Unknown /0000 inhaled - every 4-6h 06/15 as needed for shortness of breath. Medications Administered in Office Medication Date Status Form Strength Qnty SIG Indications Ordering Provider Depomedrol Administered Injection Anatoly 80MG 012 George Velasquez Depomedrol Administered Injection Dirk Roby, 40MG Jesus Alberto Vazquez Vital Signs Date Vital Result Comment 06/16/2018 Height 57.5 inches 4'9.50" Weight 143.00 lb w/ shoes Heart Rate 84 /min BP Systolic Sitting 140 mmHg BP Diastolic Sitting 75 mmHg BMI (Body Mass Index) 30.4 kg/m2 06/02/2018 Height 57.5 inches 4'9.50" Weight 136.00 lb Heart Rate 72 /min BP Systolic Sitting 138 mmHg BP Diastolic Sitting 78 mmHg Respiratory Rate 18 /min Body Temperature 98.1 F BMI (Body Mass Index) 28.9 kg/m2 09/14/2013 Height 58 inches 4'10" Weight 140.00 lb Heart Rate 92 /min BMI (Body Mass Index) 29.3 kg/m2 Results Test Date Test Result H/L Range Note CBC Auto Diff 06/07/2018 White Blood Count 9.4 10^3/uL 3.5-10.8 Red Blood Count 5.19 10^6/uL 4.00-5.40 Hemoglobin 16.0 g/dL 12.0-16.0 Hematocrit 47 % 35-47 Mean Corpuscular Volume 91 fL 80-97 Mean Corpuscular Hemoglobin 31 pg 27-31 Mean Corpuscular HGB Conc 34 g/dL 31-36 Red Cell Distribution Width 13 % 10.5-15 Platelet Count 292 10^3/uL 150-450 Mean Platelet Volume 8.6 fL 7.4-10.4 Abs Neutrophils 7.9 10^3/uL High 1.5-7.7 Abs Lymphocytes 0.9 10^3/uL Low 1.0-4.8 Abs Monocytes 0.5 10^3/uL 0-0.8 Abs Eosinophils 0 10^3/uL 0-0.6 Abs Basophils 0.1 10^3/uL 0-0.2 Abs Nucleated RBC 0 10^3/uL Granulocyte % 83.9 % High 38-83 Lymphocyte % 9.2 % Low 25-47 Monocyte % 5.7 % 0-7 Eosinophil % 0.5 % 0-6 Basophil % 0.7 % 0-2 Nucleated Red Blood Cells % 0 Basic Metabolic Panel 06/07/2018 Sodium 140 mmol/L 135-145 Potassium 4.6 mmol/L 3.5-5.0 Chloride 105 mmol/L 101-111 Co2 Carbon Dioxide 25 mmol/L 22-32 Anion Gap 10 mmol/L 2-11 Glucose 95 mg/dL 70-100 Blood Urea Nitrogen 24 mg/dL 6-24 Creatinine 0.68 mg/dL 0.51-0.95 BUN/Creatinine Ratio 35.3 High 8-20 Calcium 10.6 mg/dL High 8.6-10.3 Egfr Non- 82.2 >60 Egfr 99.5 >60 1 Inr/Protime 06/07/2018 Inr 0.89 0.77-1.02 Laboratory test finding 05/10/2018 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 SEE RESULT BELOW 2 CBC Auto Diff 12/18/2017 White Blood Count [...] Egfr Non- 79.7 >60 Egfr 102.5 >60 3 Basic Metabolic Panel 06/24/2017 Sodium 134 mmol/L 133-145 Potassium 4.4 mmol/L 3.5-5.0 Chloride 102 mmol/L 101-111 Co2 Carbon Dioxide 26 mmol/L 22-32 Anion Gap 6 mmol/L 2-11 Glucose 125 mg/dL High 70-100 Blood Urea Nitrogen 20 mg/dL 6-24 Creatinine 0.69 mg/dL 0.51-0.95 BUN/Creatinine Ratio 29.0 High 8-20 Calcium 10.8 mg/dL High 8.6-10.3 Egfr Non- 81.1 >60 Egfr 104.2 >60 4 CBC Auto Diff 06/24/2017 White Blood Count [...] 0-2 Nucleated Red Blood Cells % 0 CBC Auto Diff 04/14/2013 White Blood Count [...] 0-2 Nucleated Red Blood Cells % 0.1 Comp Metabolic Panel 04/14/2013 Sodium 137 mmol/L [...] Egfr Non- 80.7 >60 Egfr 103.8 >60 5 Laboratory test finding 04/14/2013 CA 27-29 9.35 U/mL 3.5-38.6 6 Vitamin D, 25 Hydroxy 04/14/2013 25-Hydroxy Vitamin D2 <4.0 ng/mL 25-Hydroxy Vitamin D3 72 ng/mL 25-Hydroxy Vitamin D Total 72 ng/mL 7 Laboratory test finding 04/14/2013 Vitamin D 1,25-Dihydroxy 59 pg/mL 18- 78 8 Type & Screen 04/14/2013 Patient Blood Type O Positive Antibody Screen NEGATIVE Urine Culture And Sensitivities 04/14/2013 Urine Culture (SEE NOTE) 9 Urine Microscopic 04/14/2013 Urine WBC 1+ (<10 /hpf) None Seen Urine RBC 1+ (<3 /hpf) None Seen Urine Epithelial Cells 1+ Squamous /hpf None Seen Bacteria Urine None Seen None Seen Urinalysis 04/14/2013 Urine Color Yellow Urine Appearance Clear Urine Specific [place] 1.027 1.010-1.030 Urine Esterase 1+ Negative Urine [...] Erythrocyte Sed Rate 34 mm/Hr 0-40 1 Because ethnic data is not always readily [...] 15-29 5 Kidney failure <15 (or dialysis) 2 SEE RESULT BELOW Name: FLEXCarsonGLADYSGRACIELA Saundra : [address]: Andi Tamayo MD Acct: [id number] Unit: [id number] AGE: 82 Location: Re/08/18 SEX: F Status: REG REF SPEC: [id number] DORIS: 05/10/[address] [facility] [address]: Andi Tamayo MD REQ: [id number] RECD: 05/10/18 STATUS: GISELLE CHAND DR: Brandon Almonte MD _ ORDERED: FNA-IMG GUID BX/4, CYTO ADEQ-1ST P4 FINAL DIAGNOSIS 1) Thyroid, right mid, Ultrasound guided, fine needle aspiration: -- Benign thyroid nodule-involutional type ([place] class II). 2) Thyroid, right lower, Ultrasound guided, fine needle aspiration: -- Benign thyroid nodule-colloid/hyperplastic ([place] class II). 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 COMMENT: Dr. Vargas reviewed this case in intradepartmental consultation and agrees with the diagnosis. #1. THYROID RIGHT - US GUIDED RIGHT MID THYROID FINE NEEDLE ASPIRATION, #2. THYROID RIGHT - US GUIDED RIGHT LOWER THYROID FINE NEEDLE ASPIRATION, CONTINUED ON NEXT PAGE DEPARTMENT OF PATHOLOGY, [address] [place] [address] Davis Vargas M.D. Director [facility] # [id number] RUN DATE: 05/11/18 [facility] LAB LIVE PAGE 2 Patient: GRACIELA STYLES [id number] (Continued) SPECIMEN(S) RECEIVED (Continued) #3. THYROID ISTHMUS [...] 1205 END OF REPORT DEPARTMENT OF PATHOLOGY, [address] [place] [address] Davis Vargas M.D. Director [facility] # [id number] 3 Because ethnic data is not always [...] 5 Kidney failure <15 (or dialysis) 4 Because ethnic data is not always readily [...] 15-29 5 Kidney failure <15 (or dialysis) 5 Because ethnic data is not always readily [...] 15-29 5 Kidney failure <15 (or dialysis) 6 Assay by Chemiluminescence microparticle immunoassay on the [place] [employer]. Values obtained with different methods or kits cannot be used interchangeably for patient monitoring. Results cannot be interpreted as absolute evidence of the presence or absence of malignancy. The test is not interpretable in . 7 Interpretation: 51-80 (increased risk of hypercalciuria) -- REFERENCE VALUE -- 25-HYDROXY D TOTAL (D2+D3) Optimum levels in the healthy population are 20-50, patients with bone disease may benefit from higher levels within this range. Test Performed by: [facility] [place] [address] Imaging Technician: Alonso Shelton III, M.D. 8 Test Performed by: [place] [address] Imaging Technician: Alonso Shelton III, M.D. 9 RUN DATE: 04/16/13 [facility] LAB LIVE PAGE 1 RUN TIME: [address] [place] [address] Specimen Inquiry Name: GRACIELA TSYLES : [address]: Anatoly Velasquez MD Acct: [id number] Unit: [id number] AGE: 77 Location: [facility] Re04/14/13 SEX: F Status: REG REF SPEC: [id number] DORIS: 04/14/13-[address] [facility] [address]: Anatoly Velasquez MD REQ: [id number] RECD: 04/14/13-1227 EXPLICIT FAX#: [phone] STATUS: MELVIN CHAND DR: Andi WALLACE MD,MOISÉS Kapoor SOURCE: URINE [facility]: ORDERED: Urine Culture Procedure Result Verified Site Urine Culture Final 04/16/13- 1007 ML Organism 1 NORMAL YVES [place] Count 1-10,000 (Few) CFU/ML END OF REPORT * ML=Testing performed at Main Lab DEPARTMENT OF PATHOLOGY, [address] [place] [address] Davis Vargas M.D. Director [facility] Permit #[id number] Procedures Date CPT Code Description Status 07/22/2017 46538 Repair Immediate Wound < 2.6CM Completed Face/Ear/Eyelid/Nose/Lip/Muc Mem 07/22/2017 35593 Excise Malig Lesion 1.1-2CM Face/Ear/Eyelid/Nose/Lip Completed 07/03/2017 24190 Each Additional Biopsy Completed 07/03/2017 94473 Biopsy Skin Lesion Single Completed 05/02/2013 57936 Rad Shoulder Comp, Min. 2 Views Completed 05/02/2013 43265 Rad Shoulder Comp, Min. 2 Views Completed 04/21/2013 36195 RVS TTL Shoulder Arthoplasty Incld Allograft Completed 04/21/2013 34340 RVS TTL Shoulder Arthoplasty Incld Allograft Completed 04/14/2013 23778 EKG, Interpretation Only Completed 11/09/2012 84298 Rad Shoulder Comp, Min. 2 Views Completed 08/27/2012 47455 Rad Shoulder Comp, Min. 2 Views Completed 08/11/2012 29729 Tenodesis Biceps Long Tendon Completed 08/11/2012 93510 Tenodesis Biceps Long Tendon Completed 08/11/2012 41859 Arthroplasty,Total Shoulder Replacement (TSR) Completed 08/11/2012 61412 Arthroplasty,Total Shoulder Replacement (TSR) Completed 06/28/2012 97025 Rad Exam; Hand Limited Completed 06/08/2012 04161 Rad Exam; Hand Limited Completed 05/27/2012 54887 Capsulodesis Metacarpophalangeal Joint, Single Digit Completed 05/27/2012 55607 Tendon Transfer CMC/Hand W/O Free Graft Completed 05/27/2012 75844 Arthroplasty Interposition Intercarpal Or Completed Carpometacarpal JTS 05/27/2012 45305 Arthroplasty Interposition Intercarpal Or Completed Carpometacarpal JTS 03/25/2012 52679 Rad Shoulder Comp, Min. 2 Views Completed 03/25/2012 92992 Inject/Drain Joint/Bursa Major W/O US Completed 02/10/2012 34320 Rad Exam; Wrist, Comp, Min 3 Views Completed 01/02/2012 44073 Rad Exam; Hand Comp Completed 01/02/2012 07001 Rad Exam; Wrist, Comp, Min 3 Views Completed 01/02/2012 16168 Inject/Drain Joint/Bursa Major W/O US Completed 01/02/2012 43587 Inject/Drain Joint/Bursa Small W/O US Completed Encounters Type Date Location Provider CPT E/M Dx Office Visit 06/02/2018 1:00p [facility] [place] [address] C73 Curtain Inspector Office Visit 02/05/2017 11:00a [facility] [place] [address] I83.11 I83.12 L28.1 D48.5 L82.1 Office Visit 09/14/2013 10:30a [facility] Soraya Isamar, 18573 715.94 Of C.MJoshua Vazquez Office Visit 03/24/2013 9:30a [facility] Anatoly Velasquez M.D. 46212 715.91 Of C.M.AAra 996.78 Office Visit 02/01/2013 9:00a [facility] Soraya Isamar 21948 354.0 Of C.MJoshua Vazquez 715.94 Office Visit 12/21/2012 9:45a [facility] Anatoly Velasquez M.D. 79028 715.91 C.M.A. Office Visit 04/22/2012 9:45a [facility] Anatoly Velasquez M.D. 66831 715.11 C.M.A. Office Visit 03/25/2012 11:00a [facility] Anatoly Velasquez M.D. 67980 715.11 C.M.A. Office Visit 03/23/2012 9:45a [facility] Of Soraya 06468 715.94 C.MJoshua Penn M.D. 716.94 Office Visit 02/10/2012 8:30a [facility] Sorayamargoth Penn, 75520 715.94 Of C.MJoshua Vazquez 716.94 Office Visit 01/02/2012 11:30a [facility] [place] M.D. 39187 715.94 C.M.AAra 716.94 Plan of Care Future Appointment(s):08/02/2018 1:00 pm - Elder Walsh MD at [facility]06/18/2018 8:30 am - Issa Gallardo MD at [facility] AT Rcqzrunt49/16/2018 8:30 am - Radha Saez MD at [facility]06/16/2018 - Elder Walsh [id number] Malignant neoplasm of thyroid glandFollow up:6 weeksInstructions:1. Blood tests today. 2. Proceed with surgery with Dr. Saez. 3. Increase vitamin D3 to 2000 units/day.E83.52 Hypercalcemia
[2018-06-18] MEDS ORDERED: fentaNYL* 50 MCG/ML 2 ML VIAL (100 MCG VIAL) IV PRN (06:14)
[2018-06-18] MEDS ORDERED: Naloxone* 0.4 MG/ML 1 ML VIAL IV PRN (06:14)
[2018-06-18] MEDS ORDERED: oxyCODONE/Acetamin 5/325 MG* TAB PO PRN (06:14)
[2018-06-18] MEDS ORDERED: Morphine VIAL* 4 MG/ML VIAL (1 ml vial) IV PRN (06:14)
[2018-06-18] MEDS ORDERED: Famotidine IV* 10 MG/ML 2 ML (20 mg) ONE (07:00)
[2018-06-18] MEDS ORDERED: Dexamethasone TAB* 4 MG ONE (07:01)
[2018-06-18] MEDS ORDERED: Buffered Lidocaine 0.9% SYRIN* 5 ML/SYR SYRINGE ONE (07:01)
[2018-06-18] MEDS ORDERED: Ondansetron ODT TAB* 4 MG ONE (07:01)
[2018-06-18] MEDS ORDERED: Bupivacaine 0.25% SDV PF* 10 ML VIAL INJ ONE (07:02)
[2018-06-18] MEDS ORDERED: Lidocaine 0.5%* 50 ML SDV ONE (07:02)
[2018-06-18] MEDS ORDERED: Midazolam* 1 MG/ML 2 ML VIAL (2 MG) ONE (07:39)
[2018-06-18] MEDS ORDERED: Atracurium* 10 MG/ML 10 ML VIAL ONE (07:39)
[2018-06-18] MEDS ORDERED: KETAMINE HCL* 50 MG/ML 10 ML VIAL ONE (07:39)
[2018-06-18] MEDS ORDERED: fentaNYL* 50 MCG/ML 2 ML VIAL (100 MCG VIAL) ONE ×3 (07:39→13:40)
[2018-06-18] MEDS ORDERED: Benzocaine/Butamben/Tetracain (CETACAINE - SINGLE USE) 5 gm TOPICAL ONE (08:41)
[2018-06-18] MEDS ORDERED: Lidocaine 2% PF * 5 ML VIAL ONE (12:02)
[2018-06-18] MEDS ORDERED: Labetalol IV* 5 MG/ML 20 ML VIAL ONE (12:07)
[2018-06-18] MEDS ORDERED: Metoprolol Tartrate IV* 1 MG/ML 5 ML VIAL ONE (12:09)
[2018-06-18] MEDS ORDERED: Acetaminophen TAB* 325 MG PO PRN (12:35)
[2018-06-18] MEDS ORDERED: Ondansetron INJ* 2 MG/ML VIAL IV PRN (12:35)
[2018-06-18] MEDS ORDERED: Docusate CAP* 100 MG PO PRN (12:35)
[2018-06-18] MEDS ORDERED: Albuterol HFA INHALER* 8 gm MDI INH PRN (12:45)
[2018-06-18] MEDS ORDERED: Ondansetron INJ* 2 MG/ML VIAL ONE (14:16)
[2018-06-18] MEDS: Sodium Chloride 5% OPTH.SOL* 15 ML BTL BOTH EYES SCH ×2 (14:50→22:12)
[2018-06-18] MEDS: Calcium Carbonate TAB* 1250 MG (CALCIUM 500 MG) PO SCH ×2 (14:50→16:27)
[2018-06-18] MEDS ORDERED: EPHEDrine (Pressors)* 50 MG/ML VIAL ONE (15:13)
[2018-06-18] MEDS ORDERED: Phenylephrine INJ* 10 MG/ML 1 ML VIAL (10 MG) ONE (15:13)
[2018-06-18] MEDS ORDERED: Propofol* 10 MG/ML 20 ML BTL IV PUSH ONE (15:13)
[2018-06-18] MEDS: HYDROcodone/ACETAMIN 5-325 MG* 1 TAB PO PRN ×2 (16:27→22:09)
[2018-06-18] MEDS ORDERED: Gabapentin CAP(*) 100 MG PO SCH (16:30)
[2018-06-18] MEDS ORDERED: Mometasone 220 MCG MDI INH SCH (18:00)
[2018-06-18] MEDS: Ketorolac INJ* 15 MG/ML 1 ML VIAL IV PUSH SCH (18:10)
[2018-06-18 20:36] LABS: Urine Appearance Cloudy; Urine Blood 1+ (Negative); Urine Color Yellow; Urine Ketones Trace (Negative); Urine Protein 1+(30 mg/dL) (Negative); Urine Red Blood Cell 2+(6-10/hpf) (Absent); Urine Specific Gravity 1.011 (1.010-1.030); Urine Urobilinogen Negative (Negative); Urine White Blood Cell 3+(>20/hpf) (Absent)
[2018-06-18] MEDS ORDERED: Cholecalciferol TAB* 1000 UNITS PO SCH (21:00)
[2018-06-18] MEDS ORDERED: amLODIPine TAB* 5 MG PO SCH (21:00)
[2018-06-18] MEDS ORDERED: Fluticasone NASAL SPRAY 50MCG* 16 gm SPRAY BTL BOTH NARES SCH (21:00)
[2018-06-18] MEDS ORDERED: Montelukast Sodium TAB* 10 MG PO SCH (21:00)
[2018-06-18] MEDS: Gabapentin CAP(*) 100 MG PO SCH (22:11)
[2018-06-19] MEDS: Ketorolac INJ* 15 MG/ML 1 ML VIAL IV PUSH SCH ×3 (02:32→12:38)
[2018-06-19] MEDS: Calcium Carbonate TAB* 1250 MG (CALCIUM 500 MG) PO SCH ×3 (06:29→12:38)
[2018-06-19 07:59] VITALS: BP 135/55
[2018-06-19] MEDS ORDERED: Multivitamins/Minerals TAB PO SCH (09:00)
[2018-06-19] MEDS ORDERED: Spironolactone TAB* 25 MG PO SCH (09:00)
[2018-06-19] MEDS: Gabapentin CAP(*) 100 MG PO SCH (09:25)
[2018-06-19] MEDS: Sodium Chloride 5% OPTH.SOL* 15 ML BTL BOTH EYES SCH (09:26)
--- NOTE | 2018-06-19 10:43 | OP ---
DATE OF OPERATION: 06/18/18 - ROOM #352 DATE OF : 31 SURGEON: Radha Saez MD. PUBLIC HEALTH: Issa Gallardo MD. ANESTHESIOLOGIST: Dr. De La Rosa. PRE-OP DIAGNOSES: Papillary thyroid cancer, primary hyperparathyroidism. POST-OP DIAGNOSES: Papillary thyroid cancer, primary hyperparathyroidism. OPERATIVE PROCEDURES: Flexible laryngoscopy, total thyroidectomy, left upper parathyroidectomy. ESTIMATED BLOOD LOSS: Approximately 20 cc. INDICATIONS: Ms. Olmstead is a very pleasant 83-year-old female who was found to have an enlarging left neck mass. Ultrasound indicated there is a very large left thyroid nodule, as well as multinodular goiter. FNA biopsies of the left sided nodule confirmed papillary thyroid carcinoma. The patient also had a history of primary hyperparathyroidism. The patient under-went lymph node mapping and there were no suspicious lateral neck lymph nodes. Therefore, the patient gave informed consent for flexible laryngoscopy, total thyroidectomy and other related procedures. I had indicated to her that likely she would have at least one enlarged parathyroid gland given her history of primary hyperparathyroidism and identified, I would also perform a parathyroidectomy. The patient understood the risks, benefits and alternatives of the procedure and she wished to proceed. INTRAOPERATIVE FINDINGS: The left lobe was extremely enlarged consistent with the findings on the ultrasound. The left upper parathyroid gland was also adenomatous in appearance. DESCRIPTION OF PROCEDURE: The patient was brought back to the operating room and placed on the operating table in a supine position. Venodyne boots were placed on the bilateral lower extremities for DVT prophylaxis. General anesthesia was induced. The patient was positioned with her arms tucked and her neck was extended using an inflated A-line pressure bag between her scapula. Once positioned, a time-out was performed verifying the patient's name , date of and procedure to be performed. Local anesthesia with 0.25% Marcaine and 0.5% lidocaine was administered to the neck and the electrodes for the NIMS nerve monitor was also attached. Next, the neck was prepped and draped in a normal sterile fashion and another time-out was performed prior to beginning the actual operation. A midline incision was made in the neck and the skin was divided down to the subcutaneous tissue. Next, subplatysmal flaps were developed inferiorly and posteriorly. Once this was done, the median raphe of the strap muscles were identified, divided and all the way down to the isthmus of the thyroid. There was a large nodule that was immediately encountered. The patient also had a pyramidal lobe. The attachments to the upper isthmus were taken down using LigaSure and carried down to the trachea. The plane posterior to the isthmus of the thyroid and anterior to the trachea was developed inferiorly and the isthmus was divided using a LigaSure. Next, attention was turned to the left thyroid lobe, which contained the papillary thyroid carcinoma. The strap muscles were off of the thyroid lobe, which was extremely large. Next, the space of Reeve's was developed. The upper pole vessels were identified and ligated using a 2-0 silk suture and once this was done, the thyroid lobe was elevated up and out of the neck with a great amount of difficulty given its large size. The capsule of thyroid was broken during the attempts to lift it up and out of the neck. This propagated more throughout the thyroid causing some amount of the thyroid parenchyma to be expressed out of this capsule breech. This was taken off the operating field and sent to pathology. Next, once the thyroid lobe was delivered up and out of the neck, the left recurrent laryngeal nerve was identified and confirmed with a NIMS monitor. The left upper and left lower parathyroids were also identified and they were in normal anatomic positions. The left upper parathyroid was enlarged and adenomatous in appearance and this was therefore removed. Once the recurrent laryngeal nerve was divided, the thyroid lobe was removed off of the trachea using LigaSure with great care taken to avoid injury to the recurrent laryngeal nerve. Once this was , the stitch was placed in the upper lobe of the left thyroid lobe and this was carried off the operating table as a specimen. Next, attention was turned to the right thyroid lobe. The attachments were also divided using LigaSure and then the strap muscles were off of the thyroid lobe. The superior vessels were divided using a 2-0 silk tie. The right thyroid lobe was lifted up and out of the neck and then the recurrent laryngeal nerve was identified and the course was dissected out and this was preserved The the right upper and lower parathyroids were not definitively identified. However, there were no apparent parathyroids identified on the actual right thyroid lobe itself. This was eventually taken off of the trachea using LigaSure and this was carried off of the operating table as a specimen. Next, attention was turned towards both bilateral neck operating villalba. Hemostasis was obtained at both sides. Sterile water was also used to irrigate throughout both sides of the neck. Once hemostasis was obtained, 10 cc of Tisseel were used in the neck cavities and the strap muscles were reapproximated using 4-0 Vicryl suture. The platysma was reapproximated with 4-0 Vicryl suture and the skin was closed using a running 5- 0 Prolene suture. A sterile dressing was then placed and once the operation concluded, the patient's anesthesia was reversed and she was taken to the PACU in stable condition. At the end of the case, all counts were correct and I was present during the entirety of the case. [id number]/[facility] #: [id number] [facility]
--- NOTE | 2018-06-19 11:59 | PN ---
Progress Note - Progress Note Date of Service: 06/19/18 Note: Surgery progress note Patient is a 83 yo F with a history of papillary thyroid cancer, primary hyperparathyroidism who is POD 1 from total thyroidectomy, flexible laryngoscopy and parathyroidectomy. Doing well. Complains of some voice hoarseness. Pain is minimal. Tolerating food. Ambulating to bathroom Objective: Vital Signs - 24 hr 06/18/18 06/18/18 06/18/18 12:15 12:30 12:35 Temperature 97.5 F Pulse Rate 93 88 Respiratory Rate Blood Pressure 163/78 164/70 (mmHg) O2 Sat by Pulse 90 95 Oximetry 06/18/18 06/18/18 06/18/18 12:40 12:45 13:00 Temperature Pulse Rate 90 90 78 Respiratory Rate Blood Pressure 146/96 159/79 168/77 (mmHg) O2 Sat by Pulse 95 95 91 Oximetry 06/18/18 06/18/18 06/18/18 13:01 13:15 13:30 Temperature Pulse Rate 74 85 Respiratory Rate Blood Pressure 186/88 163/71 (mmHg) O2 Sat by Pulse 91 95 Oximetry 06/18/18 06/18/18 06/18/18 13:44 13:45 14:35 Temperature 96.2 F Pulse Rate 84 80 Respiratory 14 26 Rate Blood Pressure 148/66 155/77 (mmHg) O2 Sat by Pulse 94 92 Oximetry 06/18/18 06/18/18 06/18/18 14:59 15:49 16:27 Temperature 97.4 F Pulse Rate 87 Respiratory 26 18 18 Rate Blood Pressure 133/56 (mmHg) O2 Sat by Pulse 96 Oximetry 06/18/18 06/18/18 06/18/18 16:38 18:12 18:53 Temperature 98.2 F 97.6 F Pulse Rate 88 86 Respiratory 18 16 18 Rate Blood Pressure 155/69 124/46 (mmHg) O2 Sat by Pulse 95 96 Oximetry 06/18/18 06/18/18 06/18/18 20:00 20:34 22:09 Temperature 99.0 F Pulse Rate 90 Respiratory 16 18 16 Rate Blood Pressure 119/48 (mmHg) O2 Sat by Pulse 95 Oximetry 06/18/18 06/18/18 06/19/18 22:11 23:53 00:00 Temperature 98.6 F Pulse Rate 89 Respiratory 16 16 Rate Blood Pressure 122/63 (mmHg) O2 Sat by Pulse 95 93 Oximetry 06/19/18 06/19/18 06/19/18 00:03 02:34 03:24 Temperature 98.2 F Pulse Rate 85 Respiratory 16 16 Rate Blood Pressure 120/57 (mmHg) O2 Sat by Pulse 95 93 Oximetry 06/19/18 06/19/18 06/19/18 06:38 07:31 08:00 Temperature 97.6 F Pulse Rate 64 79 Respiratory 16 18 Rate Blood Pressure 135/55 (mmHg) O2 Sat by Pulse 91 98 Oximetry 06/19/18 09:25 Temperature Pulse Rate Respiratory 18 Rate Blood Pressure (mmHg) O2 Sat by Pulse Oximetry Intake & Output 06/18/18 06/19/18 06/19/18 22:59 06:59 14:59 Intake Total 300 200 320 Output Total 225 100 Balance 75 100 320 Intake: Oral 300 200 320 Output: Urine 225 100 Other: Estimated Void Medium # Voids 2 1 Physical exam: Neck: incision covered with steristrip, minimal tenderness, no hematoma A/P: 83 F POD 1 from total thyroidectomy, parathyroidectomy, doing well. - Discharge home - Will follow up with myself in 7-10 days to remove suture - DC medications: calcium carbonate, synthroid and norco
[2018-06-19] MEDS ORDERED: Levothyroxine TAB* 125 MCG TAB PO ONE (12:00)
--- NOTE | 2018-06-20 01:47 | DS ---
DISCHARGE SUMMARY: DATE OF ADMISSION: 06/18/18 DATE OF DISCHARGE: 06/19/18 SERVICE: General Surgery. ATTENDING SURGEON: Radha Saez MD ADMISSION DIAGNOSES: Papillary thyroid cancer, primary hyerparathyroidism. OPERATION: Total thyroidectomy, flexible laryngoscopy, and parathyroidectomy. HOSPITAL COURSE: Ms. Olmstead is a very pleasant 83-year-old female, who came in from home on 06/18/18 for elective surgery. She had a recent diagnosis of papillary thyroid carcinoma as well as a new diagnosis of primary hyperparathyroidism and she underwent a flexible laryngoscopy, total thyroidectomy, and a parathyroidectomy on 06/18/18. The procedure was uneventful. There were no complications. She was admitted for overnight observation and was noted to do very well. This morning, she has complaints of only some voice hoarseness and some difficulty swallowing from throat pain. On exam, she had no hematoma. She was ambulating to the restroom with some assistance. She denied having any perioral or finger tingling. She was noted to be in stable condition and ready for discharge home today. Her discharge instructions were given to her and her son. She should return to the urgent care or call the office for any fevers, chills, any increase in her neck swelling, also for any sort of signs or symptoms of hypocalcemia such as perioral tingling and numbness as well as around the fingers. DISCHARGE MEDICATIONS: 1. Calcium carbonate 1250 mg p.o. four times daily for 7 days and then 1250 mg p.o. x14 days. 2. Synthroid 125 mcg p.o. daily. 3. Eight tabs of [place] to be given p.r.n. for severe pain. I gave the patient discharge instructions regarding her wound and she knows to call the office on Thursday for a followup appointment to see me in 7 to 10 days. She has an appointment to see Dr. Walsh at the end of July. [id number]/[facility] #: [id number] ALEKSANDRA
== END 2018-06-19 13:10 | disposition home or self-care (01) | DRG 627 ==
LOC: AA 06:06 → SSU 14:26
PROVIDERS: ADMIT Surgery; ATTEND Surgery
PROC: 0GTK0ZZ Resection of Thyroid Gland, Open Approach (ICD-10-PCS; 2018-06-18)
PROC: 0GBM0ZZ Excision of Left Superior Parathyroid Gland, Open Approach (ICD-10-PCS; 2018-06-18)
PROC: 0CJS8ZZ Inspection of Larynx, Via Natural or Artificial Opening Endoscopic (ICD-10-PCS; principal; 2018-06-18 08:30)
DX: C73 Malignant neoplasm of thyroid gland (principal); E21.3 Hyperparathyroidism, unspecified; E78.00 Pure hypercholesterolemia, unspecified; I10 Essential (primary) hypertension; J45.909 Unspecified asthma, uncomplicated; Z96.611 Presence of right artificial shoulder joint; M81.0 Age-related osteoporosis without current pathological fracture; K44.9 Diaphragmatic hernia without obstruction or gangrene; N39.3 Stress incontinence (female) (male); M15.9 Polyosteoarthritis, unspecified; E04.2 Nontoxic multinodular goiter; Z92.3 Personal history of irradiation; Z88.0 Allergy status to penicillin; Z88.1 Allergy status to other antibiotic agents; Z85.3 Personal history of malignant neoplasm of breast; Z88.8 Allergy status to other drugs, medicaments and biological substances; Z88.5 Allergy status to narcotic agent; Z90.12 Acquired absence of left breast and nipple; Z98.42 Cataract extraction status, left eye; Z98.41 Cataract extraction status, right eye; Z82.49 Family history of ischemic heart disease and other diseases of the circulatory system; Z83.3 Family history of diabetes mellitus; Z82.3 Family history of stroke; Z80.0 Family history of malignant neoplasm of digestive organs
CPT/HCPCS: 36415; 81003; 81015; 82040; 82306; 82397; 83883; 83970; 84075; 84100; 84155; 84165; 87077; 87086; 87186; 88305; 88307; 88341; 88342; 88360; A9270-GY; C1776; J1885; J2250; J2405; J2704; J3010; J3490; J8540

== ENCOUNTER 2019-11-13 11:47 | Observation (INO) | payer MEDICARE ==
--- NOTE | 2019-11-13 11:57 | ED ---
Complex/Multi-Sys Presentation - HPI Summary HPI Summary: 84 y/o F brought in by EMS from home c/o nausea, general weakness, 8/10 abdominal pain that is worse with cough/sneezing x1 week. Patient had diarrhea earlier this week. Last bowel movement a few days ago. No vomiting, fever, cough , shortness of breath. Patient had Compazine 10 mg prior to arrival. VSS en route. Patient receives chemotherapy for ovarian/uterine cancer every Thursday. She is followed by Dr. Ackerman. She lives at home with her dog. Her daughter has been staying with her. She does not normally wear O2 at home. Hx asthma, breast cancer x2, thyroid cancer, hypertension. No hx diabetes. Medications reviewed. Allergies noted. No ETOH, recreational drug, tobacco use. - History Of Current Complaint Hx Obtained From: Patient, EMS Onset/Duration: Lasting Weeks - 1, Still Present Timing: Constant Aggravating Factor(s): Cough/sneezing Alleviating Factor(s): Compazine 10 mg - Allergies/Home Medications Allergies/Adverse Reactions: Allergies Allergy/AdvReac Type Severity Reaction Status Date / Time clindamycin Allergy Severe GI Upset Verified 07/13/19 08:37 lisinopril Allergy Intermediate Coughing Verified 07/13/19 08:37 Penicillins Allergy Intermediate Rash Verified 07/13/19 08:37 tetanus toxoid, adsorbed Allergy See Comment Verified 10/21/19 07:42 codeine AdvReac Intermediate Dizziness Verified 07/13/19 08:37 meperidine [From Demerol] AdvReac Intermediate See Comment Verified 07/13/19 08: 37 environmental Allergy Intermediate See Comment Uncoded 07/13/19 08:37 Home Medications: Home Medications Cholecalciferol CAP/TAB(NF) [Vitamin D3 CAP/TAB (NF)] 2,000 unit PO BEDTIME 02/17 [History Confirmed 11/13/19] Montelukast Sodium TAB* [Singulair 10 MG TAB*] 10 mg PO BEDTIME 03/09/18 [ History Confirmed 11/13/19] Omeprazole Magnesium [Acid Memorial Marker Designer] 20 mg PO QAM 03/09/18 [History Confirmed 07/22] Sodium Chloride 5% OPTH.TROY* [Chalo 128 Opth 5% OPTH.SOLl*] 1 drop BOTH EYES TID 03/09/18 [History Confirmed 11/13/19] Spironolactone TAB* [Aldactone TAB 25 MG*] 12.5 mg PO QAM 03/09/18 [History Confirmed 11/13/19] Vit A/Vit C/Vit E/Zinc/Copper [Preservision Areds Softgel] 1 cap PO BID [History Confirmed 11/13/19] amLODIPine TAB* [Norvasc 5 mg TAB*] 10 mg PO BEDTIME 03/09/18 [History Confirmed 11/13/19] Albuterol HFA INHALER* [Ventolin HFA Inhaler*] 1 - 2 puff INH Q4H PRN 06/15/18 [ History Confirmed 11/13/19] Fluticasone NASAL SPRAY 50MCG* [Flonase NASAL SPRAY 50MCG*] 2 spray BOTH NARES BEDTIME 06/15/18 [History Confirmed 11/13/19] Gabapentin CAP(*) [Neurontin 100 mg CAP(*)] 100 mg PO TID 06/15/18 [History Confirmed 11/13/19] Beclomethasone Dipropionate [Qvar Redihaler] 2 puff INH DAILY 11/13/19 [History Confirmed 11/13/19] Escitalopram * [Lexapro 5 mg (NF)] 5 mg PO DAILY 11/13/19 [History Confirmed 07/22] Levothyroxine Sodium 1 tab PO DAILY 11/13/19 [History Confirmed 11/13/19] PMH/Surg Hx/FS Hx/Imm Hx Endocrine/Hematology History: Reports: Hx Thyroid Disease - thyroid cancer Denies: Hx Diabetes Cardiovascular History: Reports: Hx Hypertension - ON MEDICATION Respiratory History: Reports: Hx Asthma - ALLERGIES, Hx Chronic Obstructive Pulmonary Disease (COPD), Hx Seasonal Allergies GI History: Reports: Hx Gastroesophageal Reflux Disease - ON MEDICATION FOR/ SLEEPS WITH HEAD OF BED ELEVATED, Hx Hiatal Hernia - ON MEDICATION History: Reports: Other Problems/Disorders - INCONTINENCE Musculoskeletal History: Reports: Hx Arthritis - OSTEOARTHRITIS, Hx Tendonitis, Other Musculoskeletal History Sensory History: Reports: Hx Cataracts, Hx Contacts or Glasses Opthamlomology History: Reports: Hx Cataracts, Hx Contacts or Glasses Neurological History: Reports: Hx Headaches, Other Neuro Impairments/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 - Cancer History Cancer Type, Location and Year: breast x2; skin Hx Chemotherapy: Yes - Surgical History Surgery Procedure, Year, and Place: 2001 BILATERAL CATARACT SUR[place] [facility] [place] LEFT BREAST LUMPECTOMY, [facility];2007 LEFT BREAST MASTECTOMY, [facility];2007 LOWER FRONT AND RIGHT JAW SURGERY, [facility] [place];1991 ORAL SURGERY, [facility];2012 (August) right total shoulder replacement 2012 (April) revision right shoulder; COLONOSCOPY;2008 LOWER RIGHT JAW SURGERY WITH IMPLANT, [facility] [place];2008 EXPLORATION LOWER RIGHT JAW, [place];2002 LEFT WRIST SURGERY, [facility] [place];RIGHT WRIST SURGERY;2010 ; MOHS SURGERY WITH SKIN GRAFT ON FACE, [place] (x8 SKIN CANCER SURGERYS); Hx Anesthesia Reactions: Yes - HARD TIME WAKING UP - Family History Known Family History: Positive: Cardiac Disease - sister, Other - pancreatic cancer, mother Negative: Respiratory Disease - Social History Alcohol Use: None Substance Use Type: Reports: None Smoking Status (MU): Never Smoked Tobacco Review of Systems Negative: Fever Negative: Shortness Of Breath, Cough Positive: Abdominal Pain, Diarrhea, Nausea. Negative: Vomiting All Other Systems Reviewed And Are Negative: Yes Physical Exam - Summary Physical Exam Summary: Constitutional: Well-developed, Well-nourished, Alert. (-) Distressed Skin: Warm, Dry HENT: Normocephalic; Atraumatic Eyes: Conjunctiva normal Neck: Musculoskeletal ROM normal neck. (-) JVD, (-) Stridor, (-) Tracheal deviation Cardio: Rhythm regular, rate normal, Heart sounds normal; Intact distal pulses; Radial pulses are 2+ and symmetric. (-) Murmur Pulmonary/Chest wall: Effort normal. (-) Respiratory distress, (-) Wheezes, (-) Rales; She is satting 91% on room air Abd: Soft, LUQ and LLQ tenderness, (-) Distension, (-) Guarding, (-) Rebound Musculoskeletal: (-) Edema Lymph: (-) Cervical adenopathy Neuro: Alert, Oriented x3 Psych: Mood and affect Normal Triage Information Reviewed: Yes Vital Signs Reviewed: Yes Procedures - Sedation Patient Received Moderate/Deep Sedation with Procedure: No Diagnostics - Laboratory Result Diagrams: 11/13/19 12:10 11/13/19 12:10 Lab Statement: Any lab studies that have been ordered have been reviewed, and results considered in the medical decision making process. - Radiology CXR Radiology Interpretation Completed By: Radiologist - IMPRESSION: #. Suboptimal inspiration with resulting crowding of the pulmonary markings and subsegmental atelectasis. Otherwise grossly clear lungs and pleural spaces. ED physician has reviewed this report. - CT ABD/PEL CT Interpretation Completed By: Radiologist - IMPRESSION: #. Free intraperitoneal air without definitive source identified. Suggestion of potential fistula between the LEFT ovarian mass and the sigmoid colon. #. Enlarged anteverted uterus with central cystic change similar to the prior exam. 5.8 x 6.4 cm RIGHT ovarian and 6.0 x 5.8 cm LEFT ovarian cystic and solid lesions with enhancing components with interval decrease in size on the LEFT compared with the prior exam. #. New mild RIGHT and moderate LEFT hydronephrosis. #. Interval decrease in size of retroperitoneal lymph nodes. # . Stigmata of peritoneal carcinomatosis with probable serosal lesions at the small bowel loops at the LEFT abdomen. Negative for resulting bowel obstruction. ED physician has reviewed this report. - EKG 1208 Cardiac Rate: NL - 99 BPM EKG Rhythm: Sinus Rhythm Summary of EKG Findings: No obvious ischemic changes. Wandering baseline. ED physician has reviewed and interpreted this EKG. Re-Evaluation - Re-Evaluation First Eval Re-Evaluation Time: 13:53 Comment: patient updated on circumstances and given options. patient is not sure what she wants to do. will call daughter Second Eval Re-Evaluation Time: 13:54 Comment: spoke with daughter Sury who is a nurse. she is leaning towards hospice care for patient. she is going to call her siblings to discuss Third Eval Re-Evaluation Time: 14:26 Comment: Sury called back and stated that family is leaning towards hospice care Fourth Eval Re-Evaluation Time: 15:30 Comment: spoke with Sury again who stated that after talking to the patient , the patient agrees to not do surgical intervention Complex Multi-Symp Course/Dx Course Of Treatment: Patient is here with worsening weakness and left lower quadrant pain. Patient has advanced ovarian cancer and is receiving weekly chemotherapy. On exam here, patient was Hayde hypoxic which she's been in the past. Patient did have point tenderness on her left abdomen. Patient had blood performed which showed an elevated troponin of 0.07, elevated CRP, hyponatremia. Patient had a CT scan performed which showed free intraperitoneal air. Surgery was initially called to evaluate the patient. Oncology was also called to get their recommendations. Family was talked to him multiple times and they decided on palliative care for patient. Patient was given empiric antibiotics. Patient was admitted to the hospitalist for further management. - Diagnoses Provider Diagnoses: Perforated bowel, Ovarian cancer, Hyponatremia, Elevated troponin - Physician Notifications Discussed Care Of Patient With: Gokul Norton Time Discussed With Above Provider: 13:33 Instructed by Provider To: Other - Dr. Norton recommends oncology consult and states he will gladly see patient if oncology requests surgery consult. 1344 Dr. Iyer states patient was responding to chemotherapy and recommends speaking to family. 1428 Dr. Blancas requests surgery consult. 1432 Dr. Norton agrees to see patient in ED. 1520 Dr. Norton saw the patient and recommends admission to the hospitalist. 1524 Dr. Blancas agrees to admit the patient - Critical Care Time Critical Care Time: 75-104 min - 75 minutes CCT Discharge ED - Sign-Out/Discharge Documenting (check all that apply): Patient Departure - Discharge Plan Condition: Stable Disposition: ADMITTED TO [facility] Referrals: Andi Tamayo MD [Primary Care Provider] - - Billing Disposition and Condition Condition: STABLE Disposition: Admitted to [facility] - Attestation Statements Document Initiated by Radha: Yes Documenting Scribe: Cathy Self Provider For Whom Radha is Documenting (Include Credential): Barrington Rodríguez MD Scribe Attestation: Cathy David, scribed for Barrington Rodríguez MD on 11/13/19 at 1615. Scribe Documentation Reviewed: Yes Provider Attestation: The documentation as recorded by the Cathy guido accurately reflects the service I personally performed and the decisions made by me, Barrington Rodríguez MD Status of Scribe Document: Viewed
[2019-11-13] MEDS ORDERED: NS 0.9% 1000 ML** 1,000 ML IV ONE (11:59)
[2019-11-13 12:19] LABS: Hematocrit 39 % (35-47); Hemoglobin 13.4 g/dL (12.0-16.0); Mean Corpuscular HGB Conc 34 g/dL (31-36); Mean Corpuscular Hemoglobin 30 pg (27-31); Mean Corpuscular Volume 87 fL (80-97); Mean Platelet Volume 7.5 fL (7.4-10.4); Platelet Count 246 10^3/uL (150-450); Red Blood Count 4.49 10^6 /uL (3.70-4.87); Red Cell Distribution Width 15 % (10-15); White Blood Count 2.1 10^3/uL (3.5-10.8)
[2019-11-13 12:34] LABS: ALT 31 U/L (7-52); AST 49 U/L (13-39); Albumin 2.9 g/dL (3.2-5.2); Albumin/Globulin Ratio 0.9 (1-3); Alkaline Phosphatase 152 U/L (34-104); Anion Gap 13 mmol/L (2-11); BUN/Creatinine Ratio 20.9 (8-20); Blood Urea Nitrogen 18 mg/dL (6-24); CO2 Carbon Dioxide 23 mmol/L (22-32); Calcium 8.6 mg/dL (8.6-10.3); Chloride 94 mmol/L (101-111); EGFR African American 75.7 (>60); EGFR Non-African American 62.6 (>60); Globulin 3.2 g/dL (2-4); Glucose 136 mg/dL (70-100); Potassium 3.5 mmol/L (3.5-5.0); Sodium 130 mmol/L (135-145); Total Protein 6.1 g/dL (6.4-8.9)
[2019-11-13 12:38] LABS: Troponin I 0.07 ng/mL (<0.03)
[2019-11-13] MEDS ORDERED: Iohexol 300* (CONTRAST) 10 ML SDV IV ONE (12:51)
[2019-11-13] MEDS ORDERED: metroNIDAZOLE IV 500 MG/100ML* 500 MG/100 ML BAG IVPB ONE (13:35)
[2019-11-13] MEDS ORDERED: cefTRIAXone(*) 1 GM in NS 0.9% 50 ML* 50 ML IVPB ONE (13:35)
--- OUTSIDE RECORDS SUMMARY | 2019-11-13 14:05 | XMS REPORT | Continuity of Care Document ---
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 [phone] Medicine Problems Active Problems Provider Date Dysphagia Traci Samson NP Onset: 08/05/2018 History of malignant neoplasm of thyroid Traci Samson NP Onset: Note: thyroidectomy 06/18/2918 Social History Type Date Description Comments Sex Unknown ETOH Use Denies alcohol use Tobacco Use Start: Unknown Patient has never smoked Recreational Drug Use Denies Drug Use Smoking Status Reviewed: 08/31/19 Patient has never smoked Exercise Type/Frequency Does not exercise Allergies, Adverse Reactions, Alerts Active Allergies Reaction Severity Comments Date Penicillins rash 09/14/2013 Codeine nausea 09/14/2013 Clindamycin gi distress 09/14/2013 Lisinopril cough 09/14/2013 Demerol nausea 09/14/2013 Tetanus Toxoids 09/14/2013 Medications Active Medications SIG Qnty Indications Ordering Date Provider Vortex Valved Holding use as directed 1units R06.00 Kemar Herrmann MD 08/31 Chamber Device Levothyroxine Sodium take one tablet 30tabs Elder Walsh MD 08/03/2018 150mcg daily by mouth Tablets on an empty stomach Amlodipine Besylate 10 mg daily Unknown Singulair qd Unknown 10mg Vitamin D po qd Unknown 2000Unit Tablets Fluticasone Propionate 2 sprays each Unknown nostril daily as needed Qvar Redihaler 2 puff twice a Unknown 40mcg/Act day Aerosol Clobetasol Propionate apply a thin Unknown 0.05% layer to Cream affected areas twice daily as needed Preservision Areds 1 tab by mouth Unknown twice a day Capsules Chalo 128 four times a day Unknown 2% Solution as directed Aleve 1-2 tablets Unknown 220mg Tablets every 12 hours as needed pain Gabapentin 1-2 tabs three Unknown 100mg Capsules times a day Spironolactone 1/2 by mouth Unknown 25mg Tablets every day Esomeprazole Magnesium 1 by mouth every Unknown 20mg day Capsules DR Levalbuterol Tartrate 1 puff 2-3 times Unknown daily as needed 45mcg/Act Aerosol for sob History Medications Fluticasone 1 puff each 29.7ml R06.00 Kemar Herrmann 08/31/2019 - Propionate Nasal nostril twice a MD 09/30/2019 Shubert day 50mcg/Act Suspension Medications Administered in Office Medication SIG Qnty Indications Ordering Provider Date Depomedrol 80MG Anatoly Velasquez M.D. 03/25/2012 Injection Depomedrol 40MG Grover Ca M.D. 01/02/2012 Injection Immunizations Description No Information Available Vital Signs Date Vital Result Comment 08/31/2019 9:06am Height 59.5 inches 4'11.50" Weight 139.12 lb Heart Rate 94 /min BP Systolic Sitting 144 mmHg Rue reg cuff BP Diastolic Sitting 72 mmHg Rue reg cuff O2 % BldC Oximetry 95 % On Ra BMI (Body Mass Index) 27.6 kg/m2 08/16/2019 2:51pm Height 59.5 inches 4'11.50" Weight 140.00 lb w/ shoes Heart Rate 102 /min BP Systolic Sitting 158 mmHg BP Diastolic Sitting 90 mmHg BMI (Body Mass Index) 27.8 kg/m2 Results Test Acquired Date Facility Test Result H/L Range Note Laboratory test 09/22/2019 [facility] Point of Care 90 mg/dL Normal 70-100 [address] [place] [address] [phone] Cytology Non-Behavioral Intervention Specialist 09/05/2019 [facility] Cytology SEE RESULT [address] [place] [address] [phone] PDFReport SEE IMAGE Thyroglobulin 08/16/2019 [facility] Thyroglobulin <1.8 IU/mL <4.0 [address] [place] [address] [phone] Thyroglobulin Tumor Marker 0.7 ng/mL Abnormal 3 Thyroglobulin Interpretation See Comment 4 Laboratory 08/16/2019 [facility] TSH (Thyroid 1.71 Normal 0.34 -5.60 test finding [address] Stim Horm) mcIU/[place] [address] [phone] Free T4 (Free Thyroxine) 1.31 ng/dL High 0.61-1.12 1 Embedded Case Manager: [id number] 2 SEE RESULT BELOW Name: GRACIELA STYLES : [address]: Elder Walsh MD Acct: [id number] Unit: [id number] AGE: 84 Location: Re09/05/19 SEX: F Status: REG REF SPEC: [id number] DORIS: 09/05/19-[address] [facility] [address]: Elder Walsh MD REQ: [id number] RECD: 09/05/19-1502 STATUS: GISELLE CHAND DR: Hodan No MD _ ORDERED: FNA-IMG GUID BX, LEVEL 4, CYTO ADEQ-1ST P, IMMUNO-FIRST, IMMUNO- ADDL/12, IMMUNO-QUANT/4 ADDENDUM The findings were discussed with Dr. Martins who provided the additional clinical history of suspicion for a gynecologic malignancy. Additional immunohistochemical stains, with appropriately reacting controls, were performed on sections cut from the cell block and show lesional cells to be positive for vimentin and WT-1. The immunoprofile is most compatible with metastasis from an ovarian carcinoma primary. Addendum Signed (signature on file) Renata Hernandez MD 1514 Additional immunohistochemical stains, with appropriately reacting controls, were performed with the following results: ALK negative CA19-9 negative CA125 negative Napsin-A negative P63 negative HER-2/arnoldo negative (1+) CDX 2 negative ER focally weakly positive (10%) WV negative (0%) CK20 negative CK7 focally strongly positive CK 5/6 negative The previous thyroid carcinoma ([id number]) was compared to this tumor. The morphology and immunoprofile are different with this tumor demonstrating more pleomorphic features and absence of staining with TTF-1 and thyroglobulin. The immunoprofile is not specific as to site of origin of this tumor. It could represent metastasis from the previous thyroid primary with dedifferentiation. However, metastasis from the previous thyroid carcinoma cannot be confirmed or refuted. CONTINUED ON NEXT PAGE DEPARTMENT OF PATHOLOGY, [address] [place] [address] Davis Vargas M.D. Director [facility] # [id number] Addendum Signed (signature on file) Renata Hernandez MD 12/20 1139 FINAL DIAGNOSIS Supraclavicular lymph node, left, ultrasound guided fine needle aspiration: -- Malignant. -- Carcinoma; see comment. COMMENT: Slides show clustered malignant epithelioid elements with a moderate amount of cytoplasm. Immunohistochemical stains, with appropriately reacting controls, were performed with the following results: TTF-1 negative Thyroglobulin negative PD-L1 0% tumor, 10% microenvironment The clinical history of thyroid carcinoma is noted. The immunoprofile indicates that this metastasis is unlikely of thyroid origin. Additional immunohistochemical stains are pending in an effort to determine site of origin and the results will be reported in an addendum. SPECIMEN(S) RECEIVED A. SUPRACLAVICULAR LEFT - US GUIDED LEFT SUPRACLAVICULAR LYMPH NODE FINE NEEDLE ASPIRATION CONTINUED ON NEXT PAGE DEPARTMENT OF PATHOLOGY, [address] [place] [address] Davis Vargas M.D. Director [facility] # [id number] CLINICAL HISTORY 1.4 x 1.0 x 1.3 cm left supraclavicular lymph node. History of thyroid cancer 2018 with thyroidectomy. IMMEDIATE INTERPRETATION Pass 1-adequate, passes 2 3-additional material GROSS DESCRIPTION Ultrasound guided, fine needle aspiration x 3 passes with 1 alcohol fixed slide(s) and needle rinse in formalin for cell block. Signed by and Reported on: Renata Hernandez MD 09/06/19 1239 END OF REPORT DEPARTMENT OF PATHOLOGY, [address] [place] [address] Davis Vargas M.D. Director [facility] # [id number] REFERENCE VALUE Athyrotic <0.1 Intact Thyroid <=33 4 Thyroglobulin (Tg) levels must be interpreted in the context of TSH levels, serial Tg measurements and radioiodine ablation status. Tg levels of 0.1-2.0 ng/mL in athyrotic individuals on suppressive therapy indicate a low risk of clinically detectable recurrent papillary/follicular thyroid cancer. ADDITIONAL INFORMATION PLEASE NOTE: Thyroglobulin flagging is based on athyrotic reference values. The thyroglobulin and thyroglobulin antibody testing methods are immunoenzymatic assays manufactured by [employer] and performed on the [employer] DXI 800. Values obtained from different assay methods or kits may be different and cannot be used interchangeably. The results cannot be interpreted as absolute evidence for the presence or absence of malignant disease. Test Performed by: [facility] [address] [place] [address] Seating Captain: Brigido Posada M.D. Ph.D.; [facility]# [id number] Procedures Date Code Description Status 08/29/2019 58808 Diffusing Capacity Completed 08/29/2019 88016 Plethysmography Determination Lung Volumes & Per Airway Completed Resist 08/29/2019 72919 Pulmonary Function><Bronchodil Completed 07/21/2019 30399 [facility] Measurement Heart Rate, Completed Oximetry Medical Devices Description No Information Available Encounters Type Date Location Provider Dx Diagnosis Office Visit 09/26/2019 [place] Tom Wallacek, D72.829 Elevated white 1:00p Center [facility] AT [place] blood cell count, Bliss unspecified D45 Polycythemia vera R93.89 Abnormal findings on dx imaging of oth body structures Z85.850 Personal history of malignant neoplasm of thyroid Z85.3 Personal history of malignant neoplasm of breast Office Visit 08/31/2019 9:45a Pulmonology And Kemar R06.00 Dyspnea, [facility] unspecified [facility] Office Visit 08/16/2019 3:00p [place] [facility] and Elder Walsh, R93.89 Abnormal findings Endocrinology of MD on dx imaging of [facility] ot body structures C73 Malignant neoplasm of thyroid gland E89.0 Postprocedural hypothyroidism R06.00 Dyspnea, unspecified Assessments Date Code Description Provider 09/26/2019 D72.829 Elevated white blood cell count, unspecified Tom Ackerman MD 09/26/2019 D45 Polycythemia vera Tom Ackerman MD 09/26/2019 R93.89 Abnormal findings on diagnostic imaging of Tom Ackerman MD other specified body structures 09/26/2019 Z85.850 Personal history of malignant neoplasm of Tom Ackerman MD thyroid 09/26/2019 Z85.3 Personal history of malignant neoplasm of Tom Ackerman MD breast 08/31/2019 R06.00 Dyspnea, unspecified Kemar Herrmann MD 08/29/2019 R06.00 Dyspnea, unspecified Jovita Becker MD 08/16/2019 R93.89 Abnormal findings on diagnostic imaging of Elder Walsh MD other specified body structures 08/16/2019 C73 Malignant neoplasm of thyroid gland Elder Walsh MD 08/16/2019 E89.0 Postprocedural hypothyroidism Elder Walsh MD 08/16/2019 R06.00 Dyspnea, unspecified Elder Walsh MD 07/21/2019 R06.00 Dyspnea, unspecified Kemar Herrmann MD Plan of Treatment 08/31/2019 - Kemar Herrmann MDR06.00 Dyspnea, unspecifiedNew Medication:Vortex Valved Holding Chamber - use as directedFluticasone Propionate Nasal Shubert 50 mcg/Act - 1 puff each nostril twice a dayComments:At this time the patient should continue Qvar Flonase nasal spray Xopenex and Singulair. She is setto undergo lymph node biopsy for thyroid nodules. She will continue Nexium. I will order a spacer for her. she should also get her heart checked out. She should follow-up with me in 6 months.Follow up:6 months. Functional Status Description No Information Available Mental Status Description No Information Available Referrals Refer to Dr Reason for Referral Status Appt Date Desiree Simon MD history of thyroid cancer, now with carcinoma of Sent unknown primary in the neck [address] [place] [address] [phone]
[2019-11-13] MEDS ORDERED: Piperacillin/Tazobac ADVAN(*) 3.375 GM in NS 0.9% 100 ML* 100 ML IVPB ONE (16:29)
[2019-11-13] MEDS ORDERED: Lactated Ringers 1000 ML Bag* 1,000 ML IV ONE (16:29)
[2019-11-13] MEDS ORDERED: Albuterol HFA INHALER* 8 gm MDI INH PRN (16:30)
[2019-11-13] MEDS ORDERED: Acetaminophen TAB* 325 MG PO PRN (16:32)
[2019-11-13] MEDS: Morphine INJ* 2 MG/ML 1 ML SYRINGE (TWO MG - NEW SYRINGE VERSION) IV PRN ×2 (16:58→20:14)
[2019-11-13] MEDS ORDERED: Zosyn per Pharmacy* NOTE FOLLOW UP SCH (17:00)
[2019-11-13] MEDS ORDERED: Albuterol 2.5 MG/3 ML NEB.SOL* (0.083%) INH PRN (18:00)
--- NOTE | 2019-11-13 18:13 | HP ---
CC: Dr. Tamayo; Dr. Ackerman* ADMISSION HISTORY AND PHYSICAL: DATE OF ADMISSION: 11/14/19. PRIMARY CARE PHYSICIAN: Dr. Tamayo. ONCOLOGIST: Dr. Ackerman. HEALTHCARE PROXY: Her daughter, Sury, who she identified to this author. CODE STATUS: DNR/DNI, discussed with the patient, completed the MOLST. SOURCE OF INFORMATION: History obtained from interview with the patient, review of past medical records including that from [facility]. RELIABILITY: Good. CHIEF COMPLAINT: Weakness. HISTORY OF PRESENT ILLNESS: This is an 84-year-old female with past medical history of thyroid cancer and breast cancer and now newly diagnosed stage IV ovarian cancer, diagnosed on 09/26/19 receiving palliative chemotherapy with carbo- Taxol, last dose approximately 7 days ago on Thursday, who has been feeling unwell since her last chemotherapy with nausea but no vomiting, lots of diarrhea. No fevers or chills. She has been eating very little. Today, she felt weaker, she could not walk and her daughter who is an RN directed her to come to the emergency room. The patient does indicate she has had "some" abdominal pain for the last 3 days, that is worse with the deep breath or cough and described as sharp, but no shortness of breath. In the emergency room, she underwent a CT abdomen and pelvis secondary to her abdominal discomfort which was notable for free intraperitoneal air or potential fistula between the left ovarian mass and sigmoid colon. Extensive conversations between Surgery, ER, the patient and her family, ultimately arrived at the decision to defer any surgery and preference for palliative care and elected for rapid discharge as possible on home hospice. These decisions were confirmed by this author and the hospitalist service was consulted for admission. REVIEW OF SYSTEMS: As per HPI, otherwise all other systems negative. PAST MEDICAL HISTORY: Includes: 1. T3, N0 papillary thyroid cancer, status post resection and CALDERON. 2. Left breast cancer, status left mastectomy. 3. P. vera. 4. Asthma. 5. Chronic lower back pain. 6. Hypertension. 7. Osteoarthritis. 8. Osteopenia. 9. Stress incontinence. 10. Newly diagnosed stage IV ovarian cancer. SOCIAL HISTORY: She is . No history of tobacco or alcohol. FAMILY HISTORY: Mother with pancreatic cancer. ALLERGIES: CLINDAMYCIN, LISINOPRIL, PENICILLIN, TETANUS TOXIN, CODEINE, MEPERIDINE, and ENVIRONMENTAL without further details. HOME MEDICATIONS: 1. Levothyroxine 150 mcg in the morning. 2. Sodium chloride eye drops. 3. Spironolactone 12.5 mg in the morning. 4. Omeprazole 20 mg daily. 5. Lexapro 5 mg daily. 6. Gabapentin 100 mg 3 times a day. 7. Cholecalciferol 2000 units at bedtime. 8 Beclomethasone 2 puffs inhaled daily. 9. Albuterol HFA 1 to 2 puffs every 4 hours as needed for shortness of breath. 10. Montelukast 10 mg at bedtime. 11. Fluticasone nasal sprays 2 sprays both nares at bedtime. 12. Amlodipine 10 mg at bedtime. PHYSICAL EXAM: GENERAL: Frail appearing woman lying flat in bed, in no apparent distress. VITALS SIGNS: Seen by this author 120/65, heart rate is 90, respiratory rate is 20, T-max in the emergency room is 98. She is 93% on room air. HEENT: Oropharynx is clear. She has dry mucous membranes. Her sclerae are anicteric. LUNGS: Her lungs are clear. HEART: She has a regular rate and rhythm. ABDOMEN: Her abdomen has hypoactive bowel sounds, tender throughout, nonrigid. EXTREMITIES: Her extremities are warm and well perfused without clubbing, cyanosis or edema. NEUROLOGIC: She is alert and oriented x3, able to have an engaging conversation , although clearly fatigued. DIAGNOSTIC STUDIES/LAB DATA: Labs reviewed, notable for lactic acid 2.1, troponin I 0.07, CRP 299. White blood cell count is 2.1, 67% neutrophils. Data reviewed. CT abdomen and pelvis, impression: Free intraperitoneal air without definitive source. Suggestion of potential fistula between left ovarian mass in the sigmoid colon. Enlarged anteverted uterus with central cystic change. Left and right ovarian cystic and solid lesions with enhancing components with interval decrease in size on the left. New mild right and moderate left hydronephrosis, interval decrease in size of retroperitoneal lymph nodes, stigmata of peritoneal carcinomatosis with probable serosal lesions at the small bowel loops at the left abdomen. No bowel obstruction. ASSESSMENT AND PLAN: This is an 84-year-old female with recent diagnosis of stage IV ovarian cancer receiving palliative chemotherapy with carbo-Taxol, now presenting with fatigue, abdominal pain and found with free intraperitoneal air. 1. Intraperitoneal air. In consultation with the patient and surgical services and family, the patient has elected to defer surgery in preference for comfort measures. Dr. Norton had a discussion with the patient's daughter and healthcare proxy, relayed the contents of that conversation to this author. The patient's daughter would like the patient to receive antibiotics. She has already received Flagyl and ceftriaxone. I will order Zosyn for the morning. The patient and the family's preference is to return home quickly with hospice, so that if she is to pass, she will be able to pass at home surrounded by family. A Palliative Care consult has been placed. Started morphine IV, can transition to oral when needed, titrate to . Palliative care consultation is placed. We discontinued nonessential medications including all those for hypertension, but I have continued her Synthroid as well as gabapentin and respiratory medications. 2. Increased lactic acidosis. Comfort care as indicated above. I will give her a liter of lactated Ringer's given dehydration clinically on exam. I will not repeat. 3. Elevated troponin in the setting of suspected demand ischemia. No intervention. We will continue to follow for comfort measures and make the patient comfortable. 4. Code status is DNR/DNI, MOLST completed and placed in chart. [id number]/[facility] #: [id number] ALEKSANDRA
[2019-11-13] MEDS: Ondansetron INJ* 2 MG/ML VIAL IV PRN (20:14)
[2019-11-13] MEDS: Montelukast Sodium TAB* 10 MG PO SCH (20:20)
[2019-11-13] MEDS: Gabapentin CAP(*) 100 MG PO SCH (20:21)
[2019-11-13] MEDS: Fluticasone NASAL SPRAY 50MCG* 16 gm SPRAY BTL BOTH NARES SCH (20:29)
--- NOTE | 2019-11-13 20:31 | PN ---
Hospitalist Progress Note Date of Service: 11/13/19 HOSPITALIST ADDENDUM Called by pharmacy due to concern for PCN allergy and Zosyn use. Will change back to Ceftriaxone and Metronidazole she received in ED without untoward effects. Day team can clarify in AM.
[2019-11-13] MEDS: metroNIDAZOLE IV 500 MG/100ML* 500 MG/100 ML BAG IVPB SCH (22:48)
--- NOTE | 2019-11-14 00:53 | CONS ---
CC: Primary care doctor; Dr. Tom Ackerman; [facility] SURGICAL CONSULTATION REPORT: DATE OF CONSULT: 11/13/19 LOCATION: The patient is seen in the emergency room. HISTORY OF PRESENT ILLNESS: I was contacted by the ER staff to evaluate Ms. Olmstead, an 84-year-ol d female, with ovarian cancer undergoing chemotherapy on a weekly basis, who presented to the emergen cy room from home via ambulance with complaints of worsening weakness and abdominal pain since Thursday . The patient describes a diffuse crampy pain, /, it is worse with movement, nonradiating, it has been worsening over the course of the week. She denies appetite. Workup in the emergency room incl uded labs and CAT scan and the CAT scan suggested a perforated viscus. The CAT scan as well as the r eport reviewed and entertained the possibility of fistulization between cancer and colon. PAST MEDICAL HISTORY: Reviewed. MEDICATIONS: Reviewed. ALLERGIES: Allergy list reviewed. PHYSICAL EXAM: She is afebrile at 98, blood pressure 128/68, heart rate 90 to low 100s, saturating i n the low 90s on room air. She is alert and oriented. She listens and ask appropriate questions. S he is hard of hearing. Her abdomen is distended and tender. There is tenderness to percussion in th e left side and at the upper abdomen. No hernias. No surgical incision. Rectal exam not performed. DIAGNOSTIC STUDIES/LAB DATA: Labs reviewed showed white count of 2.1 with bandemia. Elevated CRP of 300. Thus labs reviewed. CT scan images as well as report reviewed, please see report in the record for details. IMPRESSION AND PLAN: Critically ill 84-year-old female with metastatic disease, on recent chemothera py, who showed signs of SIRS and possibly sepsis from what appears to be a perforated viscus. Differ ential diagnosis includes a perforated sigmoid colon secondary to invasion of cancer from the ovaries versus perforated peptic ulcer disease. perforation is not quite clear. The patient has bee n experiencing this pain for over 5 days now. I discussed with her that it would require a laparotom y, abdominal washout, and possibly a colostomy. The patient understands but does not wish to make this decision without the help of her family. As we were evaluating the patient and going through her chart, I spoke with her daughter, Sury at length, describing the findings thus far. The patient already has been in discussion with the rest of the patient's family and it seems that the patient need and desire would be better met with a hosp ice situation. Therefore, this was briefly discussed with regards to likely needing admission for ledy n control before this could be put together. When the daughter then later spoke to the patient, the patient was of the mind that she did not wish to undergo surgical intervention. I did discuss the henry kelmarzena of prolonged hospitalization even if patient is able to survive this intervention and I stil l stated both side surgical or nonsurgical expectation and an informed decision was made by the patie nt and the patient's family. No additional followup by the surgical team. Overall 25 minutes was spe nt with the patient and the patient's family. [id number]/[facility] #: [id number]
[2019-11-14] MEDS: Morphine INJ* 2 MG/ML 1 ML SYRINGE (TWO MG - NEW SYRINGE VERSION) IV PRN ×4 (01:31→19:51)
[2019-11-14] MEDS: Levothyroxine TAB* 150 MCG TAB PO SCH (06:00)
[2019-11-14] MEDS: metroNIDAZOLE IV 500 MG/100ML* 500 MG/100 ML BAG IVPB SCH ×3 (06:08→22:10)
[2019-11-14] MEDS ORDERED: Piperacillin/Tazobac ADVAN(*) 3.375 GM in NS 0.9% 100 ML* 100 ML IVPB ONE (09:00)
--- NOTE | 2019-11-14 10:15 | CONSULT ---
Palliative / Hospice Consult Ordering Provider: Jack Dodge Referal Reason: Interested in hospice/no bowel meds/MS - Subjective Code Status: DNR Advance Directives Location: No Advance Directives MOLST Part A Completed: Yes - on chart MOLST Part E Completed:: Yes - on chart - History or Present Illness History or Present Illness: 84yo female with stage 4 ovarian cancer(diagnosed 09/26/19) presents to ER with nausea, weakness and 8/10 abdominal pain. PMH is significant for asthma, breast ca 1992 L lumpectomy, 2007 L mastectomy,lower front & R lower jaw surgery, thyroid cancer T3, N0 papillary s/p resection and CALDERON, HTN and osteoarthritis. PSHx , from Polycystic Kidney Disease(PKD), raised 4 teenage children all of whom have PKD, Sury is her HCP [phone], 12 grandchildren, no etoh, no drugs, no tob. Studies abd/pel CT-free air intraperitoneal, enlarged uterus, R mild and L mod hydronephrosis, no obstruction and peritoneal carcinomatosis, CXR clear, EKG NSR, H/H 13.4/39, BUN/ Cr 18/.86, egfr 62.6, CRP 299.80 and alb 2.9. Pt admitted with abdominal pain due to perforated bowel and ovarian cancer stage 4. All history is from pt, family and medical record. Lab Values: Abnormal Lab Results 11/13/19 11/13/19 11/13/19 12:10 12:10 12:10 WBC 2.1 L RBC 4.49 Hgb 13.4 Hct 39 MCV 87 MCH 30 MCHC 34 RDW 15 Plt Count 246 MPV 7.5 Neut % (Auto) Not Reportable Lymph % (Auto) Not Reportable Winkler % (Auto) Not Reportable Eos % (Auto) Not Reportable Baso % (Auto) Not Reportable Absolute Neuts (auto) Not Reportable Absolute Lymphs (auto) Not Reportable Absolute Monos (auto) Not Reportable Absolute Eos (auto) Not Reportable Absolute Basos (auto) Not Reportable Absolute Nucleated RBC Not Reportable Immature Gran % 20.0 H Neutrophils % 67.0 Band Neutrophils % 14.0 H Lymphocytes % 5.0 Reactive Lymphs % 1.0 Monocytes % 7.0 Metamyelocytes % 5.0 H Myelocytes % 1.0 Nucleated RBC % Not Reportable Abs Neuts (Manual) 1.8 Abs Lymphs (Manual) 0.1 L Abs Monocytes (Manual) 0.1 Normal RBC Morphology Not Reportable Anisocytosis 1+ Sodium 130 L Potassium 3.5 Chloride 94 L Carbon Dioxide 23 Anion Gap 13 H BUN 18 Creatinine 0.86 Est GFR ( Amer) 75.7 Est GFR (Non-Af Amer) 62.6 BUN/Creatinine Ratio 20.9 H Glucose 136 H Lactic Acid 2.1 H* Calcium 8.6 Total Bilirubin 0.50 AST 49 H ALT 31 Alkaline Phosphatase 152 H Troponin I 0.07 H* C-Reactive Protein 299.80 H Total Protein 6.1 L Albumin 2.9 L Globulin 3.2 Albumin/Globulin Ratio 0.9 L Lipase < 10 L Laboratory Last Values WBC 2.1 10^3/uL (3.5-10.8) L 11/13/19 12:10 RBC 4.49 10^6 /uL (3.70-4.87) 11/13/19 12:10 Hgb 13.4 g/dL (12.0-16.0) 11/13/19 12:10 Hct 39 % (35-47) 11/13/19 12:10 MCV 87 fL (80-97) 11/13/19 12:10 MCH 30 pg (27-31) 11/13/19 12:10 MCHC 34 g/dL (31-36) 11/13/19 12:10 RDW 15 % (10-15) 11/13/19 12:10 Plt Count 246 10^3/uL (150-450) 11/13/19 12:10 MPV 7.5 fL (7.4-10.4) 11/13/19 12:10 Neut % (Auto) Not Reportable 11/13/19 12:10 Lymph % (Auto) Not Reportable 11/13/19 12:10 Winkler % (Auto) Not Reportable 11/13/19 12:10 Eos % (Auto) Not Reportable 11/13/19 12:10 Baso % (Auto) Not Reportable 11/13/19 12:10 Absolute Neuts (auto) Not Reportable 11/13/19 12:10 Absolute Lymphs (auto) Not Reportable 11/13/19 12:10 Absolute Monos (auto) Not Reportable 11/13/19 12:10 Absolute Eos (auto) Not Reportable 11/13/19 12:10 Absolute Basos (auto) Not Reportable 11/13/19 12:10 Absolute Nucleated RBC Not Reportable 11/13/19 12:10 Immature Gran % 20.0 % (0-9) H 11/13/19 12:10 Neutrophils % 67.0 % 11/13/19 12:10 Band Neutrophils % 14.0 % (0-8) H 11/13/19 12:10 Lymphocytes % 5.0 % 11/13/19 12:10 Reactive Lymphs % 1.0 % (0-6) 11/13/19 12:10 Monocytes % 7.0 % 11/13/19 12:10 Metamyelocytes % 5.0 % (0-2) H 11/13/19 12:10 Myelocytes % 1.0 % (0-1) 11/13/19 12:10 Nucleated RBC % Not Reportable 11/13/19 12:10 Abs Neuts (Manual) 1.8 10^3/ul (1.5-7.7) 11/13/19 12:10 Abs Lymphs (Manual) 0.1 10^3/ul (1.0-4.8) L 11/13/19 12:10 Abs Monocytes (Manual) 0.1 10^3/ul (0-0.8) 11/13/19 12:10 Normal RBC Morphology Not Reportable 11/13/19 12:10 Anisocytosis 1+ 11/13/19 12:10 Sodium 130 mmol/L (135-145) L 11/13/19 12:10 Potassium 3.5 mmol/L (3.5-5.0) 11/13/19 12:10 Chloride 94 mmol/L (101-111) L 11/13/19 12:10 Carbon Dioxide 23 mmol/L (22-32) 11/13/19 12:10 Anion Gap 13 mmol/L (2-11) H 11/13/19 12:10 BUN 18 mg/dL (6-24) 11/13/19 12:10 Creatinine 0.86 mg/dL (0.51-0.95) 11/13/19 12:10 Est GFR ( Amer) 75.7 (>60) 11/13/19 12:10 Est GFR (Non-Af Amer) 62.6 (>60) 11/13/19 12:10 BUN/Creatinine Ratio 20.9 (8-20) H 11/13/19 12:10 Glucose 136 mg/dL (70-100) H 11/13/19 12:10 Lactic Acid 2.1 mmol/L (0.5-2.0) H* 11/13/19 12:10 Calcium 8.6 mg/dL (8.6-10.3) 11/13/19 12:10 Total Bilirubin 0.50 mg/dL (0.2-1.0) 11/13/19 12:10 AST 49 U/L (13-39) H 11/13/19 12:10 ALT 31 U/L (7-52) 11/13/19 12:10 Alkaline Phosphatase 152 U/L (34-104) H 11/13/19 12:10 Troponin I 0.07 ng/mL (<0.03) H* 11/13/19 12:10 C-Reactive Protein 299.80 mg/L (<8.01) H 11/13/19 12:10 Total Protein 6.1 g/dL (6.4-8.9) L 11/13/19 12:10 Albumin 2.9 g/dL (3.2-5.2) L 11/13/19 12:10 Globulin 3.2 g/dL (2-4) 11/13/19 12:10 Albumin/Globulin Ratio 0.9 (1-3) L 11/13/19 12:10 Lipase < 10 U/L (11.0-82.0) L 11/13/19 12:10 - Objective Active Medications: Acetaminophen (Tylenol Tab*) 650 mg PO Q4H PRN PRN Reason: PAIN - MILD Albuterol (Ventolin 2.5 Mg/3 Ml Neb.Mamta*) 2.5 mg INH Q4H PRN PRN Reason: SOB/WHEEZING Fluticasone Propionate (Flonase Nasal [place] 50mcg*) 2 spray BOTH NARES BEDTIME [facility] Last Admin: 11/13/19 20:29 Dose: 2 spray Gabapentin (Neurontin Cap(*)) 100 mg PO TID [facility] Last Admin: 11/13/19 20:21 Dose: 100 mg Ceftriaxone Sodium 1 gm/ (Sodium Chloride) 50 mls @ 100 mls/hr IVPB 1400 [facility] Metronidazole/Sodium Chloride (Flagyl 500 Mg Ivpb*) 500 mg in 100 mls @ 100 mls /hr IVPB Q8H [facility] Last Admin: 11/14/19 06:08 Dose: 100 mls/hr Levothyroxine Sodium (Synthroid Tab*) 150 mcg PO 0600 [facility] Last Admin: 11/14/19 06:00 Dose: 150 mcg Mometasone Furoate (Asmanex 220 Mcg Mdi *) 1 puff INH QPM [facility] Montelukast Sodium (Singulair Tab*) 10 mg PO BEDTIME [facility] Last Admin: 11/13/19 20:20 Dose: 10 mg Morphine Sulfate (Morphine Inj (Syringe))*) 1 mg IV Q2HR PRN PRN Reason: PAIN - SEVERE Last Admin: 11/14/19 01:31 Dose: 1 mg Ondansetron HCl (Zofran Inj*) 4 mg IV Q4H PRN PRN Reason: NAUSEA/VOMITING Last Admin: 11/13/19 20:14 Dose: 4 mg Vital Signs: Vital Signs: Temp Pulse Resp BP Pulse Ox 97.6 F 93 20 124/55 95 11/14/19 07:49 11/14/19 07:49 11/14/19 07:49 11/14/19 07:49 11/14/19 07:49 Patient Weight: Weight 56.699 kg Intake and Output: Intake & Output 11/12/19 11/13/19 11/14/19 11/15/19 06:59 06:59 06:59 06:59 Intake Total 2552 220 Output Total 0 Balance 2552 220 Weight 56.699 kg Intake: IV Fluids 2152 IVPB 100 100 ABX - FLAGYL 100 Oral 300 120 Output: Urine 0 Other: Estimated Void Medium # Voids 1 ADLs: Meal Record Start: 11/13/19 17: 21 Freq: Status: Active Protocol: Created 11/13/19 17:21 System (Rec: 11/13/19 17:21 System [id number]) Document 11/14/19 09:01 [id number] (Rec: 11/14/19 09:01 [id number]) Intake and Output Start: 11/13/19 12: 04 Freq: Status: Active Protocol: Created 11/13/19 12:04 System (Rec: 11/13/19 12:04 System [id number]) Intake and Output Start: 11/13/19 17: 21 Freq: DAILY@0600,1400,2200 Status: Active Protocol: Created 11/13/19 17:21 System (Rec: 11/13/19 17:21 System [id number]) Document 11/13/19 21:55 [id number] (Rec: 11/13/19 21:56 [id number]) Document 11/13/19 22:10 [id number] (Rec: 11/13/19 22:11 [id number] [id number]) Document 11/14/19 01:30 [id number] (Rec: 11/14/19 01:31 [id number] SSU-C19) Document 11/14/19 03:17 [id number] (Rec: 11/14/19 03:18 [id number] [id number]) Document 11/14/19 06:23 [id number] (Rec: 11/14/19 06:24 [id number] [id number]) Head: Normal Eyes: No Scleral Icterus Ears/Nose/Mouth/Throat: NL Teeth, Lips, Gums Neck: NL Appearance and Movements; NL JVP Cardiovascular: NL Sounds; No Murmurs; No JVD Respiratory: Symmetrical Chest Expansion and Respiratory Effort, Clear to Auscultation Neurological: Alert and Oriented x 3 - Assessment Assessment: 84yo female with stage 4 ovarian cancer presents with bowel perforation requesting hospice - Plan Consult Plan (MU): Hospice Plan: Long discussion with daughter Sury who is a RN about goals of care. They want to bring their mother home to with hospice. They are interested in a hospital bed but don't need a commode. For now they are waiting for the hospital bed to be delivered because unsure of how to transfer pt from old bed to new bed. They are okay with bringing her home before hospice sign on. Reviewed hospice services and gave her [facility] phone number and also spoke about [facility] and gave her that number as a back up, cost of Residence also given. Pt is DNR/DNI no feeding tube. Family aware that pt has limited life expectancy approx 2 weeks. Pt is eligible for hospice with diagnosis of stage 4 ovarian cancer KPS 20%, PPS 30% - Time On Unit Date of Evaluation: 11/14/19 Hospice Consult Time in: 09:30 Hospice Consult Time Out: 10:30 Hospice Consult Time Total: 60 > 50% of Time Spend In Counseling or Coordinating Care: Yes
[2019-11-14] MEDS: Gabapentin CAP(*) 100 MG PO SCH ×3 (10:31→19:47)
[2019-11-14] MEDS ORDERED: cefTRIAXone(*) 1 GM in NS 0.9% 50 ML* 50 ML IVPB SCH (14:00)
--- NOTE | 2019-11-14 14:31 | PN ---
Subjective Date of Service: 11/14/19 Interval History: Abdominal pain well controlled on current dose of morphine no nausea/vomiting Graciela has designated her daughter as the contact to coordinate discharge home She understands that this illness may al the beginning of an acute decline and her ultimate Objective Active Medications: Acetaminophen (Tylenol Tab*) 650 mg PO Q4H PRN PRN Reason: PAIN - MILD Albuterol (Ventolin 2.5 Mg/3 Ml Neb.Mamta*) 2.5 mg INH Q4H PRN PRN Reason: SOB/WHEEZING Fluticasone Propionate (Flonase Nasal [place] 50mcg*) 2 spray BOTH NARES BEDTIME [facility] Last Admin: 11/13/19 20:29 Dose: 2 spray Gabapentin (Neurontin Cap(*)) 100 mg PO TID [facility] Last Admin: 11/14/19 10:31 Dose: 100 mg Ceftriaxone Sodium 1 gm/ (Sodium Chloride) 50 mls @ 100 mls/hr IVPB 1400 DOUG Metronidazole/Sodium Chloride (Flagyl 500 Mg Ivpb*) 500 mg in 100 mls @ 100 mls /hr IVPB Q8H [facility] Last Admin: 11/14/19 06:08 Dose: 100 mls/hr Levothyroxine Sodium (Synthroid Tab*) 150 mcg PO 0600 [facility] Last Admin: 11/14/19 06:00 Dose: 150 mcg Mometasone Furoate (Asmanex 220 Mcg Mdi *) 1 puff INH QPM [facility] Montelukast Sodium (Singulair Tab*) 10 mg PO BEDTIME [facility] Last Admin: 11/13/19 20:20 Dose: 10 mg Morphine Sulfate (Morphine Inj (Syringe))*) 1 mg IV Q2HR PRN PRN Reason: PAIN - SEVERE Last Admin: 11/14/19 10:32 Dose: 1 mg Ondansetron HCl (Zofran Inj*) 4 mg IV Q4H PRN PRN Reason: NAUSEA/VOMITING Last Admin: 11/13/19 20:14 Dose: 4 mg Vital Signs - 8 hr 11/14/19 11/14/19 11/14/19 07:49 08:00 10:31 Temperature 97.6 F Pulse Rate 93 Respiratory 20 18 18 Rate Blood Pressure 124/55 (mmHg) O2 Sat by Pulse 95 Oximetry 11/14/19 11/14/19 11/14/19 10:32 12:00 12:35 Temperature 98.1 F Pulse Rate 99 Respiratory 18 17 18 Rate Blood Pressure 137/64 (mmHg) O2 Sat by Pulse 92 Oximetry Oxygen Devices in Use Now: Nasal Cannula Appearance: ill appearing, no respiratory distress Ears/Nose/Mouth/Throat: - - dry MM Respiratory: Symmetrical Chest Expansion and Respiratory Effort, Clear to Auscultation Cardiovascular: RRR Abdominal: - - tender through out, tense in LUQ Extremities: No Edema Neurological: Alert and Oriented x 3 Result Diagrams: 11/13/19 12:10 11/13/19 12:10 Assess/Plan/Problems-Billing Assessment: 84 yo F h/o recently diagnosed stage 4 ovarian cancer in September receiving palliative chemo presented with fatigue and abdominal pain found with free intraperitoneal air as well as possible fistula now on comfort care pending discharge home with hospice - Patient Problems (1) Comfort measures only status Comment: Daughter (Sury) conversation with Dr. Norton yesterday requested limited abx to temporize situation until discharge. Pt is also in agreement. Family would like to take pt home but would like hospital bed first which is pending approval from Medicare. They do not request same day sign on for hospice. I called to discuss the above with Suni at [phone] several times but have not been successful at making contact. Continuing pain medications as well as limited home medications including respiratoru medications and synthroid (2) Ovarian cancer Comment: complicated by intraabdominal catastrophe now on comfort measures (3) Urinary incontinence Comment: Pt requesting kaye catheter for comfort which was provided today (11/13 ) (4) DNR (do not resuscitate)
--- NOTE | 2019-11-14 15:52 | PN ---
Progress Note - Progress Note Date of Service: 11/14/19 SOAP: Subjective: []Seen and examined this AM. Well known to oncology due to diagnosis of ovarian cancer on weekly carbo/taxol. Pain controlled, but uncomfortable to move at all. Tolerating sips of fluids. Understands her decision to proceed with hospice. Plan of care discussed with daughter who has previously worked as a nurse and is very motivated to get her home. Discussed DME to assist with her care and she is in agreement a hospital bed is definitely needed. Medications: Acetaminophen (Tylenol Tab*) 650 mg PO Q4H PRN PRN Reason: PAIN - MILD Albuterol (Ventolin 2.5 Mg/3 Ml Neb.Mamta*) 2.5 mg INH Q4H PRN PRN Reason: SOB/WHEEZING Fluticasone Propionate (Flonase Nasal [place] 50mcg*) 2 spray BOTH NARES BEDTIME [facility] Last Admin: 11/13/19 20:29 Dose: 2 spray Gabapentin (Neurontin Cap(*)) 100 mg PO TID [facility] Last Admin: 11/14/19 14:37 Dose: 100 mg Ceftriaxone Sodium 1 gm/ (Sodium Chloride) 50 mls @ 100 mls/hr IVPB 1400 [facility] Last Admin: 11/14/19 14:39 Dose: 100 mls/hr Metronidazole/Sodium Chloride (Flagyl 500 Mg Ivpb*) 500 mg in 100 mls @ 100 mls /hr IVPB Q8H [facility] Last Admin: 11/14/19 15:34 Dose: 100 mls/hr Levothyroxine Sodium (Synthroid Tab*) 150 mcg PO 0600 [facility] Last Admin: 11/14/19 06:00 Dose: 150 mcg Mometasone Furoate (Asmanex 220 Mcg Mdi *) 1 puff INH QPM [facility] Montelukast Sodium (Singulair Tab*) 10 mg PO BEDTIME [facility] Last Admin: 11/13/19 20:20 Dose: 10 mg Morphine Sulfate (Morphine Inj (Syringe))*) 1 mg IV Q2HR PRN PRN Reason: PAIN - SEVERE Last Admin: 11/14/19 10:32 Dose: 1 mg Ondansetron HCl (Zofran Inj*) 4 mg IV Q4H PRN PRN Reason: NAUSEA/VOMITING Last Admin: 11/13/19 20:14 Dose: 4 mg Objective: [] Vital Signs Temp Pulse Resp BP Pulse Ox 98.1 F 99 16 137/64 92 11/14/19 12:00 11/14/19 12:00 11/14/19 14:37 11/14/19 12:00 11/14/19 12:00 A&O, communicating clearly, notably sleepy Grimaces with movement Resp even and non-labored +BS, tender Assessment: []84 yo female with recurrent ovarian cancer s/p C4 weekly Carbo/Taxol on presenting with progressive decline and found to have free air likely related to fistulizaiton of her tumor. She has elected to proceed with comfort measures only. Plan: []Agree comfort measures are appropriate. She would like Dr. Ackerman and our team to follow her on hospice which we would be honored to do. Recommend cont. IV abx. while inpt. Home [facility], goal of hospital bed delivery same day, hospice sign on within a day or so DNR
[2019-11-14] MEDS: Ondansetron INJ* 2 MG/ML VIAL IV PRN (16:08)
[2019-11-14] MEDS ORDERED: Mometasone 220 MCG MDI INH SCH (18:00)
--- NOTE | 2019-11-14 18:38 | DS ---
CC: Dr. Tamayo; Dr. Ackerman* DISCHARGE SUMMARY: DATE OF ADMISSION: 11/13/19 DATE OF DISCHARGE: 11/15/19 DISPOSITION ON DISCHARGE: Home with hospice. CONDITION ON DISCHARGE: Guarded. PRIMARY CARE PROVIDER: Dr. Tamayo. ONCOLOGIST: Dr. Ackerman. MEDICATIONS AT DISCHARGE: Include: 1. Albuterol 1 to 2 puffs as needed. 2. Beclomethasone 2 puffs daily. 3. Lexapro 5 mg daily. 4. Fluticasone nasal spray 2 sprays both nares as needed. 5. Gabapentin 100 mg 3 times a day. 6. Synthroid 150 mcg daily. 7. Montelukast 10 mg at bedtime. 8. Sodium chloride eye drops 1 drop both eyes. 9. Atropine 1% oral solution 2 drops sublingual every 2 hours as needed for uncontrolled secretions. 10. Oxycodone oral concentrate 5 mg every 2 hours as needed for pain or respiratory distress. PERTINENT IMAGING DURING THE COURSE OF THE HOSPITAL STAY: CT abdomen and pelvis , impression: Free intraperitoneal air without definitive source. Suggestion of potential fistula between left ovarian mass and sigmoid colon. Enlarged anteverted uterus with central cystic change similar to prior exam. There are right and left ovarian cystic and solid lesions with interval decrease in size on her ovaries. There is new mild right and moderate left hydronephrosis. Interval decrease in size of retroperitoneal lymph nodes and stigmata of peritoneal carcinomatosis with probable serosal lesion at the small bowel loops at the left abdomen, negative for bowel obstruction. HISTORY OF PRESENT ILLNESS AND HOSPITAL COURSE: This is an 84-year-old female with past medical history as outlined in the history of present illness on the day of admission by this author including history of thyroid and breast cancer, now newly diagnosed stage IV ovarian cancer, receiving palliative chemo with carbo/Taxol, last dose 1 week prior to presentation, who is feeling unwell with fatigue, presented to the emergency room. Also with abdominal pain, found with CAT scan with results as indicated above, notable for free intraperitoneal air. Conversation between Dr. Norton, the surgeon; emergency room Dr. Rodríguez; patient and family indicated that they would not want surgical intervention at this point in this patient's illness and the patient was admitted to the hospital for comfort measures with transition to hospice care. The patient has full capacity and participated in all of the decision making. She lives with her daughter Sury as well as her son-in-law who will be caring for her. The patient's pain was maintained with morphine 1 mg IV while hospitalized. She was seen in conjunction with palliative care. She will return home tomorrow and will be signed on by hospice at a later date. The family was clear that they did not need same day hospice sign on. Daughter Sury who was previous nurse, feels comfortable with administration of medications. However, they do want a hospital bed prior to the patient returning home, which is to be delivered on 11/15/19. The patient requested a [place] catheter for comfort during hospital stay and a Vallejo catheter was placed. The patient was comfortable prior to her discharge. There are no complications during the course of her hospital stay. Reasons to return the hospital would include uncontrolled symptomatology at home. The patient understands. TIME SPENT: Greater than 45 minutes was spent on the discharge of the patient, greater than half was spent [id number] with the patient. [id number]/CPS #: [id number] MTDD
[2019-11-14] MEDS: Montelukast Sodium TAB* 10 MG PO SCH (19:47)
[2019-11-14] MEDS: Fluticasone NASAL SPRAY 50MCG* 16 gm SPRAY BTL BOTH NARES SCH (19:53)
[2019-11-15] MEDS: Levothyroxine TAB* 150 MCG TAB PO SCH (05:45)
[2019-11-15] MEDS: metroNIDAZOLE IV 500 MG/100ML* 500 MG/100 ML BAG IVPB SCH (05:48)
[2019-11-15] MEDS: Ondansetron INJ* 2 MG/ML VIAL IV PRN ×2 (08:15→12:27)
[2019-11-15] MEDS: Morphine INJ* 2 MG/ML 1 ML SYRINGE (TWO MG - NEW SYRINGE VERSION) IV PRN ×2 (08:15→10:59)
[2019-11-15] MEDS: Gabapentin CAP(*) 100 MG PO SCH ×2 (08:15→08:17)
--- NOTE | 2019-11-15 09:00 | PN ---
Subjective Date of Service: 11/15/19 Interval History: No overnight events. Occasionally getting morphine for shortness of breath, not for pain. She feels dry this morning, but has no other complaints. She declines any water or jello. She is anxious to get home. Objective Active Medications: Acetaminophen (Tylenol Tab*) 650 mg PO Q4H PRN PRN Reason: PAIN - MILD Albuterol (Ventolin 2.5 Mg/3 Ml Neb.Mamta*) 2.5 mg INH Q4H PRN PRN Reason: SOB/WHEEZING Fluticasone Propionate (Flonase Nasal [place] 50mcg*) 2 spray BOTH NARES BEDTIME [facility] Last Admin: 11/14/19 19:53 Dose: 2 spray Gabapentin (Neurontin Cap(*)) 100 mg PO TID [facility] Last Admin: 11/15/19 08:17 Dose: Not Given Ceftriaxone Sodium 1 gm/ (Sodium Chloride) 50 mls @ 100 mls/hr IVPB 1400 [facility] Last Admin: 11/14/19 14:39 Dose: 100 mls/hr Metronidazole/Sodium Chloride (Flagyl 500 Mg Ivpb*) 500 mg in 100 mls @ 100 mls /hr IVPB Q8H [facility] Last Admin: 11/15/19 05:48 Dose: 100 mls/hr Levothyroxine Sodium (Synthroid Tab*) 150 mcg PO 0600 [facility] Last Admin: 11/15/19 05:45 Dose: 150 mcg Mometasone Furoate (Asmanex 220 Mcg Mdi *) 1 puff INH QPM [facility] Last Admin: 11/14/19 19:49 Dose: 1 puff Montelukast Sodium (Singulair Tab*) 10 mg PO BEDTIME [facility] Last Admin: 11/14/19 19:47 Dose: 10 mg Morphine Sulfate (Morphine Inj (Syringe))*) 1 mg IV Q2HR PRN PRN Reason: PAIN - SEVERE Last Admin: 11/15/19 08:15 Dose: 1 mg Ondansetron HCl (Zofran Inj*) 4 mg IV Q4H PRN PRN Reason: NAUSEA/VOMITING Last Admin: 11/15/19 08:15 Dose: 4 mg Vital Signs - 8 hr 11/15/19 08:15 Respiratory 18 Rate Oxygen Devices in Use Now: Nasal Cannula Appearance: alert, frail, no distress Eyes: No Scleral Icterus Ears/Nose/Mouth/Throat: Mucous Membranes Moist Neck: NL Appearance and Movements; NL JVP Respiratory: Symmetrical Chest Expansion and Respiratory Effort Cardiovascular: NL Sounds; No Murmurs; No JVD, RRR Abdominal: - - soft, nontender, bowel sounds hypoactive Extremities: No Edema Skin: No Rash or Ulcers Result Diagrams: 11/13/19 12:10 11/13/19 12:10 Assess/Plan/Problems-Billing Assessment: 84 yo F h/o recently diagnosed stage 4 ovarian cancer in September receiving palliative chemo presented with fatigue and abdominal pain found with free intraperitoneal air as well as possible fistula now on comfort care pending discharge home with hospice - Patient Problems (1) Comfort measures only status Current Visit: Yes Status: Acute Code(s): Z51.5 - ENCOUNTER FOR PALLIATIVE CARE SNOMED Code(s): 12905217850912 Comment: Patient and daughter Sury in agreement for comfort measures. Family would like to take pt home but would like hospital bed first which is pending approval from Medicare. They do not request same day sign on for hospice. Continuing pain medications as well as limited home medications including respiratory medications and synthroid Morphine adequate at this time for dyspnea and occasional pain (2) DNR (do not resuscitate) Current Visit: Yes Status: Acute Status and Disposition: home today if hospital bed gets delivered
[2019-11-15 09:50] VITALS: BP 153/62
[2019-11-15] MEDS ORDERED: LORazepam TAB(*) 0.5 MG PO ONE (10:58)
== END 2019-11-15 14:05 | disposition home or self-care (01) ==
LOC: ED 11:47 → SSU 16:32
PROVIDERS: ADMIT Internal Medicine; ATTEND Internal Medicine
DX: C56.9 Malignant neoplasm of unspecified ovary (principal); R53.1 Weakness; Z51.5 Encounter for palliative care; R19.7 Diarrhea, unspecified; J45.909 Unspecified asthma, uncomplicated; R10.9 Unspecified abdominal pain; K21.9 Gastro-esophageal reflux disease without esophagitis; M54.5 Low back pain; G89.29 Other chronic pain; I10 Essential (primary) hypertension; E87.1 Hypo-osmolality and hyponatremia; R79.89 Other specified abnormal findings of blood chemistry; M19.90 Unspecified osteoarthritis, unspecified site; R94.31 Abnormal electrocardiogram [ECG] [EKG]; K63.1 Perforation of intestine (nontraumatic); Z85.3 Personal history of malignant neoplasm of breast; Z85.850 Personal history of malignant neoplasm of thyroid; Z92.21 Personal history of antineoplastic chemotherapy; Z88.0 Allergy status to penicillin; Z88.6 Allergy status to analgesic agent; Z79.890 Hormone replacement therapy; Z79.899 Other long term (current) drug therapy; Z66 Do not resuscitate; Z88.8 Allergy status to other drugs, medicaments and biological substances; Z85.828 Personal history of other malignant neoplasm of skin
CPT/HCPCS: 36415; 71045; 74177; 80053; 83605; 83690; 84484; 85025; 85060; 86140; 93005; 96365; 96366; 96367; 96375; 96376; 99285; A9270-GY; G0378; J0696; J2270; J2405; J2543; Q9967